=== PATIENT | male | born 1975 | race Caucasian/White ===

== ENCOUNTER 2017-11-23 03:51 | Inpatient (IN) | payer MEDICAID ==
[~2017-11-23] VITALS: Ht 180.3 cm; Wt 79.5 kg
[~2017-11-23 03:51] MED LIST: HYDR-565 PO; LORA1TAB PO; TRAZ-146 PO; ZOLP10TA5 PO
[2017-11-23] MEDS ORDERED: TETanus/Pertussis (Acell)/Diphther VAC/PF (Tdap-Adult) 0.5ml syringe IM ONE (04:10)
[2017-11-23] MEDS ORDERED: normal saline 1000ML IV soln IV ONE (04:10)
[2017-11-23] MEDS ORDERED: piperacillin/tazo 3.375gm/50ml 50 ML IV ONE (04:10)
[2017-11-23] MEDS ORDERED: vancomycin/NS 1 GM ADD-VANTAGE 250 ML IV ONE (04:10)
[2017-11-23] MEDS ORDERED: ibuprofen tablet 400 MG TABLET PO ONE (04:10)
[2017-11-23 04:42] LABS: BASOPHILS # (AUTO) 0.2 X10'3 (0-0.2); EOSINOPHILS # (AUTO) 0.1 X10'3 (0-0.9); EOSINOPHILS % (AUTO) 0.8 % (0-6); HEMOGLOBIN 12.7 g/dl (14.0-17.9); LYMPHOCYTES # (AUTO) 3.3 X10'3 (1.1-4.8); LYMPHOCYTES % (AUTO) 20.7 % (21-51); MEAN CORPUSCULAR HEMOGLOBIN 24.4 PG (27.0-31.0); MEAN CORPUSCULAR HGB CONC 33.5 % (33.0-36.5); MEAN CORPUSCULAR VOLUME 72.7 FL (78-98); MEAN PLATELET VOLUME 7.6 FL (7.4-10.4); MONOCYTES # (AUTO) 1.2 X10'3 (0-0.9); MONOCYTES % (AUTO) 7.2 % (2-12); NEUTROPHILS # (AUTO) 11.3 X10'3 (1.8-7.7); NEUTROPHILS % (AUTO) 70.3 % (42-75); PLATELET COUNT 450 X10'3 (140-440); RED BLOOD COUNT 5.23 X10'6 (4.70-6.10); RED CELL DISTRIBUTION WIDTH 18.7 % (11.5-14.5)
[2017-11-23] MEDS ORDERED: morphine 4 MG/ML inj SYRINge IV ONE ×3 (04:45→10:20)
[2017-11-23 04:51] LABS: CLARITY,URINE CLOUDY (Clear); COLOR,URINE YELLOW (Yellow); GLUCOSE, URINE NEGATIVE (Neg); KETONES,URINE NEGATIVE (Neg); LEUKOCYTE ESTERASE ,URINE LARGE (Neg); NITRITES, URINE POSITIVE (Neg); OCCULT BLOOD,URINE SMALL (Neg); PH,URINE 7.5 (4.8-8.0); PROTEIN,URINE 30 mg/dl (Neg); UROBILINOGEN,URINE >=8.0 E.U/dL (0.2-1.0)
[2017-11-23 04:54] LABS: UA COLLECTION TYPE FOLEY CATH
[2017-11-23 04:56] LABS: BACTERIA,URINE 4+ /HPF (Neg); WBC,URINE 30-50 /HPF (0-4)
[2017-11-23 04:57] LABS: ALANINE AMINOTRANSFERASE 12 U/L (12-78); ALBUMIN 2.5 G/DL (3.4-5.0); ALBUMIN/GLOBULIN RATIO 0.4 (1.1-1.5); ALKALINE PHOSPHATASE 107 IU/L (46-116); ANION GAP 8 (8-16); ASPARTATE AMINO TRANSFERASE 12 U/L (10-37); BILIRUBIN,TOTAL 0.3 MG/DL (0.1-1.0); BLOOD UREA NITROGEN 6 MG/DL (7-18); BUN/CREATININE RATIO 9.7 (5.4-32.0); CALCIUM 8.4 MG/DL (8.5-10.1); CHLORIDE 97 MMOL/L (99-107); CREATININE 0.62 MG/DL (0.60-1.10); GLUCOSE 121 MG/DL (70-104); MAGNESIUM 1.8 MG/DL (1.5-2.4); POTASSIUM 3.2 MMOL/L (3.5-5.1); SODIUM 133 MMOL/L (135-145); TOTAL CARBON DIOXIDE 28.1 MMOL/L (24-32); TOTAL PROTEIN 8.6 G/DL (6.4-8.2); eGFR > 90 ML/MIN
[2017-11-23 04:58] LABS: SQUAMOUS EPITHELIAL CELL,UR NONE SEEN /LPF (FEW)
[2017-11-23 04:59] LABS: AMORPHOUS PHOSPHATES 2+; WBC CLUMPS,URINE MODERATE /HPF (NEGATIVE)
[2017-11-23] MEDS ORDERED: potassium Cl 20 mEq SR tablet PO STA (05:23)
[2017-11-23] MEDS ORDERED: normal saline 1000ml 1,000 ML IV SCH (08:03)
[2017-11-23] MEDS ORDERED: potassium Cl 40MEQ/NS 500ml 500 ML IV PRN ×2 (08:05)
[2017-11-23] MEDS ORDERED: ondansetron/PF 4mg/2ml inj IV PRN (08:05)
[2017-11-23] MEDS ORDERED: magnesium Cl slow-release 64mg tablet PO PRN (08:05)
[2017-11-23] MEDS ORDERED: magnesium 1gm/100ml D5W IVPB 100 ML IV PRN (08:05)
[2017-11-23] MEDS ORDERED: magnesium hydroxide 30ml (MOM) UD suspension PO PRN (08:05)
[2017-11-23] MEDS ORDERED: mag hydrox/Alum hydrox/simeth 30ml oral suspension PO PRN (08:05)
[2017-11-23] MEDS ORDERED: HYDROmorphone 1 mg/ml syringe IV PRN (08:05)
[2017-11-23] MEDS ORDERED: magnesium 4gm in 100ml NS 100 ML IV PRN (08:05)
[2017-11-23] MEDS ORDERED: potassium Cl 20 mEq SR tablet PO PRN ×2 (08:05)
[2017-11-23] MEDS ORDERED: piperacillin/tazo 3.375gm/50ml 50 ML IV SCH ×2 (08:10→11:00)
[2017-11-23] MEDS ORDERED: morphine 4 MG/ML inj SYRINge ONE (10:04)
[2017-11-23] MEDS ORDERED: vancomycin/NS 1 GM ADD-VANTAGE 250 ML IV SCH (13:00)
[2017-11-23 13:33] VITALS: BP 118/78
[2017-11-23] MEDS ORDERED: lactobacillus rhamnosus 10,000 MMU CELLS/CAPSULE PO SCH (20:00)
[2017-11-24] MEDS ORDERED: VANCOMYCIN LEVEL IV NR (04:30)
[2017-11-24] MEDS ORDERED: K and/or MAG REPLACEMENT MC SCH (08:00)
== END 2017-11-23 15:10 | disposition left against medical advice (07) | DRG 720 ==
LOC: ER 03:52 → ED HOLD 08:03 → EDBEDREQ 13:09 → S STAY 13:45
PROVIDERS: ADMIT Internal Medicine; ATTEND Internal Medicine
DX: A41.9 Sepsis, unspecified organism (principal); G82.50 Quadriplegia, unspecified; L89.159 Pressure ulcer of sacral region, unspecified stage; F17.210 Nicotine dependence, cigarettes, uncomplicated; G47.30 Sleep apnea, unspecified; L03.114 Cellulitis of left upper limb; M70.32 Other bursitis of elbow, left elbow; N39.0 Urinary tract infection, site not specified; M86.9 Osteomyelitis, unspecified; N31.9 Neuromuscular dysfunction of bladder, unspecified; Z53.21 Procedure and treatment not carried out due to patient leaving prior to being seen by health care provider; Z88.8 Allergy status to other drugs, medicaments and biological substances
CPT/HCPCS: 36415; 71045; 73080; 80053; 81001; 83605; 83735; 84145; 85025; 87040; 87070; 87077; 87088; 87186; 90715; A6253; A6255; A6257; A6446; A6449; J2270; J2405; J2543; J3370; J7030

== ENCOUNTER 2018-08-23 01:19 | Inpatient (IN) | payer MEDICAID ==
[~2018-08-23] VITALS: Ht 180.3 cm; Wt 88.6 kg
[~2018-08-23 01:19] MED LIST changes: +HYDR-4353 PO; -HYDR-565 PO; -TRAZ-146 PO; +TRAZ-219 PO
[2018-08-23] MEDS ORDERED: acetaminophen 325mg tablet PO STA (01:23)
[2018-08-23] MEDS ORDERED: normal saline 1000ML IV soln IVB ONE ×2 (01:30)
[2018-08-23] MEDS ORDERED: LORazepam 2 mg/ml vial IV ONE (01:40)
[2018-08-23] MEDS ORDERED: dicyclomine 10mg/ml 2ml ampule IM ONE (01:40)
[2018-08-23] MEDS ORDERED: fentaNYL/PF 50MCG/1 ML 2ML syringe IV ONE (01:40)
[2018-08-23 02:14] LABS: BASOPHILS # (AUTO) 0.1 X10'3 (0-0.2); BASOPHILS % (AUTO) 0.9 % (0-1); EOSINOPHILS # (AUTO) 0.1 X10'3 (0-0.9); HEMATOCRIT 32.9 % (42.0-52.0); LYMPHOCYTES # (AUTO) 1.3 X10'3 (1.1-4.8); MEAN CORPUSCULAR HEMOGLOBIN 24.5 PG (27.0-31.0); MEAN CORPUSCULAR HGB CONC 33.3 g/dL (33.0-36.5); MEAN PLATELET VOLUME 6.8 FL (7.4-10.4); MONOCYTES # (AUTO) 0.9 X10'3 (0-0.9); RED BLOOD COUNT 4.48 X10'6 (4.70-6.10)
[2018-08-23 02:15] LABS: EOSINOPHILS % (AUTO) 0.6 % (0-6); LYMPHOCYTES % (AUTO) 9.3 % (21-51); MEAN CORPUSCULAR VOLUME 73.5 FL (78-98); MONOCYTES % (AUTO) 6.8 % (2-12); NEUTROPHILS # (AUTO) 11.2 X10'3 (1.8-7.7); NEUTROPHILS % (AUTO) 82.4 % (42-75); PLATELET COUNT 675 X10'3 (140-440); RED CELL DISTRIBUTION WIDTH 18.2 % (11.5-14.5); WHITE BLOOD COUNT 13.6 X10'3 (4.5-11.0)
[2018-08-23 02:22] LABS: CLARITY,URINE CLOUDY (Clear); COLOR,URINE YELLOW (Yellow); GLUCOSE, URINE NEGATIVE (Neg); KETONES,URINE TRACE mg/dl (Neg); LEUKOCYTE ESTERASE ,URINE LARGE (Neg); NITRITES, URINE POSITIVE (Neg); OCCULT BLOOD,URINE LARGE (Neg); PROTEIN,URINE 30 mg/dl (Neg)
[2018-08-23 02:26] LABS: ALANINE AMINOTRANSFERASE 20 U/L (12-78); ALBUMIN/GLOBULIN RATIO 0.3 (1.1-1.5); ALKALINE PHOSPHATASE 88 IU/L (46-116); ANION GAP 8 (8-16); ASPARTATE AMINO TRANSFERASE 16 U/L (10-37); BILIRUBIN,TOTAL 0.3 MG/DL (0.1-1.0); BLOOD UREA NITROGEN 9 MG/DL (7-18); BUN/CREATININE RATIO 15.3 (5.4-32.0); CALCIUM 8.7 MG/DL (8.5-10.1); CHLORIDE 101 MMOL/L (99-107); CREATININE 0.59 MG/DL (0.60-1.10); GLUCOSE 123 MG/DL (70-104); POTASSIUM 3.6 MMOL/L (3.5-5.1); SODIUM 135 MMOL/L (135-145); TOTAL CARBON DIOXIDE 26.5 MMOL/L (24-32); TOTAL PROTEIN 8.5 G/DL (6.4-8.2); eGFR > 90 ML/MIN
[2018-08-23 02:26] LABS: UA COLLECTION TYPE FOLEY CATH
[2018-08-23 02:28] LABS: INR 1.2 INR; PARTIAL THROMBOPLASTIN TIME 32 SECONDS (22-32)
[2018-08-23 02:29] LABS: SQUAMOUS EPITHELIAL CELL,UR FEW /LPF (FEW); WBC,URINE TNTC /HPF (0-4)
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
[2018-08-23 02:30] LABS: BACTERIA,URINE 4+ /HPF (Neg); MUCUS STRANDS MODERATE /LPF (Neg)
--- NOTE | 2018-08-23 02:34 | NUR ---
DR FORD SAW PTS DECUBES. PICS TAKEN
--- NOTE | 2018-08-23 02:34 | NUR ---
asked dr rose if he wanted wounds redressed. stated not to do it and to let wound care take care of it
[2018-08-23 02:38] LABS: URINE AMPHETAMINE SCREEN POSITIVE (Neg); URINE BARBITUATE SCREEN NEGATIVE (Neg); URINE BENZODIAZEPINES SCREEN NEGATIVE (Neg); URINE CANNABINOID SCREEN NEGATIVE (Neg); URINE COCAINE SCREEN NEGATIVE (Neg); URINE METHADONE SCREEN NEGATIVE (Neg); URINE OPIATE SCREEN NEGATIVE (Neg); URINE PHENCYCLIDINE SCREEN NEGATIVE (Neg)
[2018-08-23] MEDS ORDERED: piperacillin/tazo 3.375gm/50ml 50 ML IV SCH (02:40)
[2018-08-23] MEDS ORDERED: normal saline 1000ml 1,000 ML IV SCH (03:24)
[2018-08-23] MEDS ORDERED: morphine 2 MG/ML inj. syringe IV PRN (03:25)
[2018-08-23] MEDS ORDERED: magnesium hydroxide 30ml (MOM) UD suspension PO PRN (03:25)
[2018-08-23] MEDS ORDERED: acetaminophen 325mg tablet PO PRN (03:25)
[2018-08-23] MEDS ORDERED: NO HOME MEDS (03:26)
[2018-08-23] MEDS: morphine 2 MG/ML inj. syringe IV PRN ×5 (04:34→23:29)
[2018-08-23 05:00] VITALS: BP 168/119
[2018-08-23 06:00] VITALS: BP 96/60
--- NOTE | 2018-08-23 06:32 | NUR ---
Problems reprioritized. Patient report given, questions answered & plan of care reviewed with edwina Feliciano.
[2018-08-23] MEDS: heparin, porcine 5000 units/ml vial SQ SCH ×2 (07:05→19:27)
[2018-08-23] MEDS: mag hydrox/Alum hydrox/simeth 30ml oral suspension PO PRN ×3 (09:15→21:22)
[2018-08-23 10:00] VITALS: BP 167/108
[2018-08-23] MEDS: cefepime 1GM/NS ADD-VANTAGE 100 ML IV SCH ×2 (10:45→19:27)
[2018-08-23] MEDS: vancomycin inj 1,250 MG in NS 250ml IV soln IV SCH ×2 (12:38→19:29)
--- NOTE | 2018-08-23 14:29 | NUR ---
PRESSURE ULCER EDUCATION: DEFINITION: A pressure ulcer is an area of skin that breaks down when you stay in one position too long. The constant pressure against the skin reduces the blood flow to that area and the affected tissue dies. CAUSES: "Being bedridden or in a wheelchair "Fragile skin "Having a chronic condition, such as diabetes or vascular disease "Inability to move certain parts of your body without assistance "Older age "Incontinence of urine or stool SYMPTOMS: "A reddened area that DOES NOT turn white when pressed on - this can be the beginning of a pressure ulcer "A blister, deep sore or a crater - these can be advanced pressure ulcers FIRST AID: "Relieve the pressure on this area "Keep the area clean and dry "Call your primary doctor if you see any of the above symptoms "DO NOT massage the area "DO NOT use a donut shaped or ring shaped pillow- these actually interfere with the blood flow and cause complications PREVENTION: "Check for pressure ulcers everyday "Change position at least every two hours to relieve pressure "Use items that help relieve pressure- pillows, sheepskin, foam padding, and powders. "Keep skin clean and dry "Eat healthy well balanced meals "Exercise daily IF YOU SEE ANY OF THESE SYMPTOMS WHILE IN THE HOSPITAL - TELL YOUR NURSE IMMEDIATELY. IF YOU SEE ANY OF THESE SYMPTOMS WHILE AT HOME OR HAVE ANY QUESTIONS OR CONCERNS ABOUT PRESSURE ULCERS - CALL YOUR PRIMARY DOCTOR IMMEDIATELY. Addendum: 08/23/18 at 1526 by Linda Valdez RN Amended: Links added.
--- NOTE | 2018-08-23 15:12 | NUR ---
RECOMMEND: 1. Daily bathing with no rinse skin cleanser. 2. Cream/Lotion to be applied to skin after bathing. 3. Belkys care Q shift and prn soiling, followed by Barrier Cream prn redness. 4. Turn patient Q 1-2 hrs and reposition with pillows. Pad walt prominences 5. Float heels to offload pressure. 6. Advanta Bed 7. Daily dressing to left elbow: Apply Teneder Wet pad and then wrap with kerlix. Secure with tape. 8. Daily dressing to right ischial wound. Apply Tender wet pad and cover with gauze or hydrophylic foam and then secure with tape 9. Daily dressing to left ischial wound. Lightly fill wound including undermined areas with saline moistened kerlix and cover with an ABD pad. Secure with tape. Addendum: 08/23/18 at 1526 by Linda Valdez RN Amended: Links added.
[2018-08-23] MEDS: metoprolol tartrate 25mg tablet PO SCH ×2 (16:26→19:26)
[2018-08-23] MEDS: potassium cl 20mEq in 1/2 NS 1,000 ML IV SCH (16:27)
[2018-08-23] MEDS: HYDROcodone/acetaminophen 10/325mg tab PO PRN ×2 (16:43→21:22)
[2018-08-23] MEDS: ondansetron/PF 4mg/2ml inj IV PRN (17:02)
[2018-08-23] MEDS: LORazepam 0.5 MG tablet PO PRN (17:59)
[2018-08-23 18:00] VITALS: BP 136/76
--- NOTE | 2018-08-23 18:24 | NUR ---
Problems reprioritized. Patient report given, questions answered & plan of care reviewed with Carrie SULTANA.
[2018-08-23] MEDS: lactobacillus rhamnosus 10,000 MMU CELLS/CAPSULE PO SCH (19:27)
[2018-08-23] MEDS: docusate sod 250mg capsule PO SCH (21:22)
[2018-08-23 22:00] VITALS: BP 147/84
[2018-08-24 02:00] VITALS: BP 91/47
--- NOTE | 2018-08-24 03:00 | NUR ---
Attempted to draw labs from pt, unsuccessful. transcript clerk attempted as well. Let lab know they will need to draw this am.
[2018-08-24] MEDS ORDERED: VANCOMYCIN LEVEL IV ONE (03:30)
[2018-08-24] MEDS: cefepime 1GM/NS ADD-VANTAGE 100 ML IV SCH ×3 (03:40→20:02)
[2018-08-24] MEDS: vancomycin inj 1,250 MG in NS 250ml IV soln IV SCH ×3 (04:00→16:51)
[2018-08-24] MEDS: morphine 2 MG/ML inj. syringe IV PRN ×4 (04:37→20:05)
[2018-08-24] MEDS: potassium cl 20mEq in 1/2 NS 1,000 ML IV SCH (04:40)
[2018-08-24 06:00] VITALS: BP 124/73
--- NOTE | 2018-08-24 06:12 | NUR ---
received report from edwina sandhu
[2018-08-24 06:39] LABS: BASOPHILS # (AUTO) 0.1 X10'3 (0-0.2); BASOPHILS % (AUTO) 1.1 % (0-1); EOSINOPHILS # (AUTO) 0.3 X10'3 (0-0.9); EOSINOPHILS % (AUTO) 3.2 % (0-6); HEMATOCRIT 29.7 % (42.0-52.0); HEMOGLOBIN 9.8 g/dl (14.0-17.9); LYMPHOCYTES # (AUTO) 1.9 X10'3 (1.1-4.8); LYMPHOCYTES % (AUTO) 18.6 % (21-51); MEAN CORPUSCULAR HEMOGLOBIN 24.8 PG (27.0-31.0); MEAN CORPUSCULAR VOLUME 75.1 FL (78-98); MEAN PLATELET VOLUME 6.8 FL (7.4-10.4); MONOCYTES # (AUTO) 0.9 X10'3 (0-0.9); MONOCYTES % (AUTO) 8.6 % (2-12); NEUTROPHILS # (AUTO) 7.1 X10'3 (1.8-7.7); NEUTROPHILS % (AUTO) 68.5 % (42-75); PLATELET COUNT 501 X10'3 (140-440); RED BLOOD COUNT 3.95 X10'6 (4.70-6.10); RED CELL DISTRIBUTION WIDTH 17.5 % (11.5-14.5); WHITE BLOOD COUNT 10.4 X10'3 (4.5-11.0)
[2018-08-24 06:56] LABS: ALANINE AMINOTRANSFERASE 14 U/L (12-78); ALBUMIN 1.6 G/DL (3.4-5.0); ALBUMIN/GLOBULIN RATIO 0.3 (1.1-1.5); ALKALINE PHOSPHATASE 77 IU/L (46-116); ANION GAP 7 (8-16); ASPARTATE AMINO TRANSFERASE 14 U/L (10-37); BILIRUBIN,TOTAL 0.2 MG/DL (0.1-1.0); BLOOD UREA NITROGEN 8 MG/DL (7-18); BUN/CREATININE RATIO 12.9 (5.4-32.0); CALCIUM 8.8 MG/DL (8.5-10.1); CHLORIDE 104 MMOL/L (99-107); CREATININE 0.62 MG/DL (0.60-1.10); GLUCOSE 141 MG/DL (70-104); POTASSIUM 3.5 MMOL/L (3.5-5.1); SODIUM 137 MMOL/L (135-145); TOTAL CARBON DIOXIDE 26.4 MMOL/L (24-32); TOTAL PROTEIN 7.1 G/DL (6.4-8.2); VANCOMYCIN,TROUGH 17.1 UG/ML (6.0-14.0); eGFR > 90 ML/MIN
[2018-08-24] MEDS: HYDROcodone/acetaminophen 10/325mg tab PO PRN ×4 (07:02→21:45)
[2018-08-24] MEDS: metoprolol tartrate 25mg tablet PO SCH (07:02)
[2018-08-24] MEDS: lactobacillus rhamnosus 10,000 MMU CELLS/CAPSULE PO SCH ×2 (07:02→20:02)
[2018-08-24] MEDS: heparin, porcine 5000 units/ml vial SQ SCH ×2 (07:04→20:05)
[2018-08-24] MEDS: ondansetron/PF 4mg/2ml inj IV PRN (09:32)
[2018-08-24 10:00] VITALS: BP 103/62
--- NOTE | 2018-08-24 10:45 | NUR ---
spoke w/financial secretary from dr. delgadillo's office returning a call from the nurse yesterday to establish an appointment for this pt, financial secretary told me that pt needs to establish himself w/a pcp at [facility] in order for dr. delgadillo to see him and that its very important that pt does b/c he has kidney stones that need to be taken care of per financial secretary, relayed message to pt, continue to educate pt
[2018-08-24] MEDS: mag hydrox/Alum hydrox/simeth 30ml oral suspension PO PRN (12:28)
[2018-08-24] MEDS: LORazepam 0.5 MG tablet PO PRN ×2 (13:49→21:44)
[2018-08-24 18:00] VITALS: BP 145/103
--- NOTE | 2018-08-24 18:07 | NUR ---
GAVE REPORT TO RD CASTAÑEDA
[2018-08-24] MEDS: metoprolol tartrate 12.5mg (1/2 tablet) PO SCH (20:03)
[2018-08-24] MEDS: docusate sod 250mg capsule PO SCH (20:04)
[2018-08-24 23:00] VITALS: BP 141/94
[2018-08-25] MEDS: vancomycin inj 1,250 MG in NS 250ml IV soln IV SCH ×2 (01:00→09:00)
[2018-08-25] MEDS: morphine 2 MG/ML inj. syringe IV PRN ×5 (01:00→20:00)
[2018-08-25] MEDS: HYDROcodone/acetaminophen 10/325mg tab PO PRN ×4 (02:45→17:14)
[2018-08-25] MEDS: cefepime 1GM/NS ADD-VANTAGE 100 ML IV SCH ×3 (02:49→19:53)
[2018-08-25 06:00] VITALS: BP 104/68
[2018-08-25] MEDS: LORazepam 0.5 MG tablet PO PRN (06:05)
[2018-08-25] MEDS: lactobacillus rhamnosus 10,000 MMU CELLS/CAPSULE PO SCH ×2 (08:05→19:54)
[2018-08-25] MEDS: heparin, porcine 5000 units/ml vial SQ SCH ×2 (08:06→19:56)
[2018-08-25] MEDS: metoprolol tartrate 12.5mg (1/2 tablet) PO SCH ×2 (08:06→19:54)
[2018-08-25 08:21] LABS: BASOPHILS # (AUTO) 0.1 X10'3 (0-0.2); EOSINOPHILS # (AUTO) 0.3 X10'3 (0-0.9); EOSINOPHILS % (AUTO) 2.6 % (0-6); HEMATOCRIT 31.5 % (42.0-52.0); HEMOGLOBIN 10.4 g/dl (14.0-17.9); LYMPHOCYTES # (AUTO) 1.8 X10'3 (1.1-4.8); LYMPHOCYTES % (AUTO) 17.7 % (21-51); MEAN CORPUSCULAR HEMOGLOBIN 24.7 PG (27.0-31.0); MEAN PLATELET VOLUME 6.7 FL (7.4-10.4); MONOCYTES # (AUTO) 0.7 X10'3 (0-0.9); MONOCYTES % (AUTO) 6.5 % (2-12); NEUTROPHILS # (AUTO) 7.3 X10'3 (1.8-7.7); NEUTROPHILS % (AUTO) 72.2 % (42-75); PLATELET COUNT 574 X10'3 (140-440); RED BLOOD COUNT 4.21 X10'6 (4.70-6.10); RED CELL DISTRIBUTION WIDTH 17.6 % (11.5-14.5); WHITE BLOOD COUNT 10.1 X10'3 (4.5-11.0)
[2018-08-25] MEDS ORDERED: VANCOMYCIN LEVEL IV ONE (08:30)
[2018-08-25 08:56] LABS: ALBUMIN 1.7 G/DL (3.4-5.0); ALBUMIN/GLOBULIN RATIO 0.3 (1.1-1.5); ANION GAP 5 (8-16); BILIRUBIN,TOTAL 0.2 MG/DL (0.1-1.0); BLOOD UREA NITROGEN 8 MG/DL (7-18); BUN/CREATININE RATIO 12.7 (5.4-32.0); CALCIUM 8.5 MG/DL (8.5-10.1); CHLORIDE 103 MMOL/L (99-107); CREATININE 0.63 MG/DL (0.60-1.10); GLUCOSE 117 MG/DL (70-104); POTASSIUM 3.8 MMOL/L (3.5-5.1); SODIUM 137 MMOL/L (135-145); TOTAL CARBON DIOXIDE 28.6 MMOL/L (24-32); TOTAL PROTEIN 7.7 G/DL (6.4-8.2); eGFR > 90 ML/MIN
[2018-08-25 08:57] LABS: ALANINE AMINOTRANSFERASE 16 U/L (12-78); ALKALINE PHOSPHATASE 83 IU/L (46-116); ASPARTATE AMINO TRANSFERASE 14 U/L (10-37)
[2018-08-25] MEDS: LORazepam 2 mg/ml vial IV PRN ×2 (10:44→17:17)
[2018-08-25 11:00] VITALS: BP 168/93
[2018-08-25] MEDS: vancomycin/NS 1 GM ADD-VANTAGE 250 ML IV SCH ×2 (13:25→20:33)
[2018-08-25 18:00] VITALS: BP 110/89
--- NOTE | 2018-08-25 19:00 | NUR ---
Patient in room ORTHO 4006. I have received report from am RN and had the opportunity to ask questions and assume patient care.
[2018-08-25] MEDS: docusate sod 250mg capsule PO SCH (19:56)
[2018-08-25 22:00] VITALS: BP 113/73
[2018-08-26] MEDS: LORazepam 2 mg/ml vial IV PRN (00:29)
[2018-08-26] MEDS: morphine 2 MG/ML inj. syringe IV PRN ×3 (02:00→15:06)
[2018-08-26] MEDS: cefepime 1GM/NS ADD-VANTAGE 100 ML IV SCH ×2 (03:16→11:39)
[2018-08-26] MEDS: vancomycin/NS 1 GM ADD-VANTAGE 250 ML IV SCH ×2 (04:43→15:11)
[2018-08-26] MEDS: HYDROcodone/acetaminophen 10/325mg tab PO PRN ×3 (04:47→17:43)
[2018-08-26 05:56] LABS: BASOPHILS % (AUTO) 0.5 % (0-1); EOSINOPHILS # (AUTO) 0.2 X10'3 (0-0.9); EOSINOPHILS % (AUTO) 2.6 % (0-6); HEMOGLOBIN 9.6 g/dl (14.0-17.9); LYMPHOCYTES # (AUTO) 1.6 X10'3 (1.1-4.8); LYMPHOCYTES % (AUTO) 18.9 % (21-51); MEAN CORPUSCULAR HEMOGLOBIN 24.4 PG (27.0-31.0); MEAN CORPUSCULAR HGB CONC 32.9 g/dL (33.0-36.5); MEAN CORPUSCULAR VOLUME 74.3 FL (78-98); MEAN PLATELET VOLUME 6.8 FL (7.4-10.4); MONOCYTES # (AUTO) 0.7 X10'3 (0-0.9); MONOCYTES % (AUTO) 7.7 % (2-12); NEUTROPHILS # (AUTO) 6.1 X10'3 (1.8-7.7); NEUTROPHILS % (AUTO) 70.3 % (42-75); PLATELET COUNT 555 X10'3 (140-440); RED BLOOD COUNT 3.91 X10'6 (4.70-6.10); RED CELL DISTRIBUTION WIDTH 17.7 % (11.5-14.5); WHITE BLOOD COUNT 8.7 X10'3 (4.5-11.0)
[2018-08-26 06:00] VITALS: BP 150/80
--- NOTE | 2018-08-26 06:00 | NUR ---
Patient in room ORTHO 4006. I have received report from Young SULTANA and had the opportunity to ask questions and assume patient care.
[2018-08-26 06:23] LABS: ALANINE AMINOTRANSFERASE 12 U/L (12-78); ALBUMIN 1.5 G/DL (3.4-5.0); ALBUMIN/GLOBULIN RATIO 0.3 (1.1-1.5); ALKALINE PHOSPHATASE 85 IU/L (46-116); ANION GAP 8 (8-16); ASPARTATE AMINO TRANSFERASE 14 U/L (10-37); BILIRUBIN,TOTAL 0.2 MG/DL (0.1-1.0); BLOOD UREA NITROGEN 7 MG/DL (7-18); BUN/CREATININE RATIO 12.5 (5.4-32.0); CALCIUM 8.5 MG/DL (8.5-10.1); CHLORIDE 104 MMOL/L (99-107); CREATININE 0.56 MG/DL (0.60-1.10); GLUCOSE 104 MG/DL (70-104); POTASSIUM 3.7 MMOL/L (3.5-5.1); SODIUM 139 MMOL/L (135-145); TOTAL CARBON DIOXIDE 27.4 MMOL/L (24-32); TOTAL PROTEIN 7.2 G/DL (6.4-8.2); eGFR > 90 ML/MIN
[2018-08-26] MEDS: heparin, porcine 5000 units/ml vial SQ SCH (08:24)
[2018-08-26] MEDS: lactobacillus rhamnosus 10,000 MMU CELLS/CAPSULE PO SCH (08:24)
[2018-08-26] MEDS: metoprolol tartrate 12.5mg (1/2 tablet) PO SCH (08:25)
[2018-08-26 10:00] VITALS: BP 177/112
[2018-08-26] MEDS ORDERED: VANCOMYCIN LEVEL IV NR (11:30)
[2018-08-26] MEDS ORDERED: CLIN60LO2 TP (14:37)
[2018-08-26] MEDS ORDERED: SULF1TAB49 PO (14:37)
[2018-08-26] MEDS ORDERED: HYDR-4383 PO (14:38)
--- NOTE | 2018-08-26 15:14 | NUR ---
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 Pt seen at bedside given written and verbal protein education with coupons for ONS and Christian as well as RD contact information. Pt agreeable to double protein TID and chocolate high protein shake BIDLD to provide additional protein at meals, d/w . RD encouraged PO intake in order to meet wound healing needs. RD paged MD with recommendation of MVM for wound healing and low MCV. Pt on a regular diet with previous 50% intake however documented with 75-100% intake at breakfast this morning. Pt endorses a good appetite and states he is hungry/thirsty. Pt states he is allergic to fish/shellfish and will break into hives if eaten, allergy updated in EMR. Pt denies any difficulty chewing/swallowing. LBM 08/23, pt with routine Colace and MoM PRN not yet given. Will continue to follow. Recommendations: 1) Continue regular diet 2) Double protein TID 3) Chocolate high protein shake BIDLD 4) Encourage PO intake 5) Monitor need for additional bowel care 6) Wt per rx Addendum: 08/26/18 at [address] Amended: Links added.
[2018-08-26] MEDS ORDERED: High Protein Shake w/Arg/Glut/Ca2+Bmb (Juven 19.3gm) pkt 240ml PO SCH (17:30)
[2018-08-26] MEDS: LORazepam 0.5 MG tablet PO PRN (17:43)
--- NOTE | 2018-08-26 19:08 | NUR ---
Patient discharged home with . All belongings sent with patient. DC instructions given and IV taken out
[2018-08-26] MEDS ORDERED: clindamycin 1% topical susp 60ml bottle TP SCH (20:00)
== END 2018-08-26 18:20 | disposition home health service (06) | DRG 466 ==
LOC: ER 01:20 → ORTHO 4S 04:24 → CMPBEDREQ 04:36
PROVIDERS: ADMIT Internal Medicine; ATTEND Internal Medicine
PROC: 5A09357 Assistance with Respiratory Ventilation, Less than 24 Consecutive Hours, Continuous Positive Airway Pressure (ICD-10-PCS; principal; 2018-08-23)
PROC: 5A09357 Assistance with Respiratory Ventilation, Less than 24 Consecutive Hours, Continuous Positive Airway Pressure (ICD-10-PCS; 2018-08-26)
DX: T83.511A Infection and inflammatory reaction due to indwelling urethral catheter, initial encounter (principal); A41.9 Sepsis, unspecified organism; G82.50 Quadriplegia, unspecified; L89.214 Pressure ulcer of right hip, stage 4; L89.224 Pressure ulcer of left hip, stage 4; F15.90 Other stimulant use, unspecified, uncomplicated; F17.200 Nicotine dependence, unspecified, uncomplicated; G47.30 Sleep apnea, unspecified; N21.0 Calculus in bladder; N31.9 Neuromuscular dysfunction of bladder, unspecified; N39.0 Urinary tract infection, site not specified; G89.4 Chronic pain syndrome; Y84.6 Urinary catheterization as the cause of abnormal reaction of the patient, or of later complication, without mention of misadventure at the time of the procedure; I10 Essential (primary) hypertension; L89.029 Pressure ulcer of left elbow, unspecified stage; Z88.8 Allergy status to other drugs, medicaments and biological substances; Z91.013 Allergy to seafood; Z79.899 Other long term (current) drug therapy; Y92.89 Other specified places as the place of occurrence of the external cause; Z74.01 Bed confinement status
CPT/HCPCS: 36415; 71045; 71250; 74176; 80053; 80202; 80305; 81001; 83605; 84145; 85025; 85610; 85730; 87040; 87070; 87077; 87088; 87186; 93005; 96365; 96367; 96372; 96375; 99285; G0378; J0500; J0692; J1644; J2060; J2270; J2405; J2543; J3010; J3370; J7030

== ENCOUNTER 2018-09-14 09:34 | Inpatient (IN) | payer MEDICAID ==
[~2018-09-14] VITALS: Ht 180.3 cm; Wt 81.8 kg
[~2018-09-14 09:34] MED LIST changes: +CLIN60LO2 TP; -HYDR-4353 PO; +HYDR-4383 PO; -LORA1TAB PO; +SULF1TAB49 PO; -TRAZ-219 PO; -ZOLP10TA5 PO
--- NOTE | 2018-09-14 09:45 | NUR ---
STATES HAS NEVER BEEN ALLERGIC TO FISH OR SHELLFIST ALTHOUGH DOES NOT EAT FISH
[2018-09-14] MEDS ORDERED: acetaminophen 325mg tablet PO STA (10:08)
[2018-09-14] MEDS ORDERED: normal saline 1000ML IV soln IV ONE (10:10)
[2018-09-14] MEDS ORDERED: CefTRIAXone 2gm/D5W 50ml 50 ML IV ONE (10:30)
--- NOTE | 2018-09-14 10:50 | NUR ---
picc line nurse iva at bedside
[2018-09-14] MEDS ORDERED: morphine 4 MG/ML inj SYRINge IV ONE (11:05)
[2018-09-14] MEDS ORDERED: ondansetron/PF 4mg/2ml inj IV ONE (11:05)
[2018-09-14 11:13] LABS: BASOPHILS # (AUTO) 0.1 X10'3 (0-0.2); BASOPHILS % (AUTO) 0.8 % (0-1); EOSINOPHILS # (AUTO) 0.1 X10'3 (0-0.9); EOSINOPHILS % (AUTO) 0.4 % (0-6); HEMATOCRIT 29.4 % (42.0-52.0); HEMOGLOBIN 9.4 g/dl (14.0-17.9); LYMPHOCYTES # (AUTO) 2.8 X10'3 (1.1-4.8); LYMPHOCYTES % (AUTO) 20.8 % (21-51); MEAN CORPUSCULAR HEMOGLOBIN 23.3 PG (27.0-31.0); MEAN CORPUSCULAR HGB CONC 31.9 g/dL (33.0-36.5); MEAN PLATELET VOLUME 6.9 FL (7.4-10.4); MONOCYTES # (AUTO) 1.3 X10'3 (0-0.9); MONOCYTES % (AUTO) 9.5 % (2-12); NEUTROPHILS # (AUTO) 9.2 X10'3 (1.8-7.7); NEUTROPHILS % (AUTO) 68.5 % (42-75); PLATELET COUNT 551 X10'3 (140-440); RED BLOOD COUNT 4.02 X10'6 (4.70-6.10); RED CELL DISTRIBUTION WIDTH 17.3 % (11.5-14.5); WHITE BLOOD COUNT 13.5 X10'3 (4.5-11.0)
[2018-09-14 11:20] LABS: INR 1.2 INR; PARTIAL THROMBOPLASTIN TIME 34 SECONDS (22-32)
[2018-09-14 11:23] LABS: ALANINE AMINOTRANSFERASE 19 U/L (12-78); ALBUMIN 1.8 G/DL (3.4-5.0); ALBUMIN/GLOBULIN RATIO 0.3 (1.1-1.5); ALKALINE PHOSPHATASE 110 IU/L (46-116); ANION GAP 6 (8-16); ASPARTATE AMINO TRANSFERASE 16 U/L (10-37); BILIRUBIN,TOTAL 0.4 MG/DL (0.1-1.0); BLOOD UREA NITROGEN 11 MG/DL (7-18); BUN/CREATININE RATIO 19.6 (5.4-32.0); CALCIUM 8.8 MG/DL (8.5-10.1); CHLORIDE 98 MMOL/L (99-107); CREATININE 0.56 MG/DL (0.60-1.10); GLUCOSE 123 MG/DL (70-104); MAGNESIUM 1.5 MG/DL (1.5-2.4); POTASSIUM 3.4 MMOL/L (3.5-5.1); SODIUM 132 MMOL/L (135-145); TOTAL CARBON DIOXIDE 27.8 MMOL/L (24-32); TOTAL PROTEIN 8.6 G/DL (6.4-8.2); eGFR > 90 ML/MIN
--- NOTE | 2018-09-14 12:01 | NUR ---
MULTIPLE PROCEDURES PERFORMED, PT MEDICATED WITH 4 OF ZOFRAN AND MORPHINE PRIOR TO PROCEDURES, CATHETER CHANGE, BILATER HIP WOUND CARE PERFORMED AND BLOOD DRAWN FOR SECOND SET OF CULTURES, URINE OBTAINED FOR U/A/CULTURE. PT TOLERATED WELL
[2018-09-14 12:14] LABS: CLARITY,URINE CLOUDY (Clear); COLOR,URINE YELLOW (Yellow); GLUCOSE, URINE NEGATIVE (Neg); KETONES,URINE NEGATIVE (Neg); LEUKOCYTE ESTERASE ,URINE LARGE (Neg); NITRITES, URINE POSITIVE (Neg); OCCULT BLOOD,URINE LARGE (Neg); PROTEIN,URINE 100 mg/dl (Neg)
[2018-09-14] MEDS ORDERED: LORazepam 2 mg/ml vial IV ONE (12:20)
[2018-09-14 12:22] LABS: UA COLLECTION TYPE STRAIGHT CATH
[2018-09-14 12:23] LABS: WBC,URINE TNTC /HPF (0-4)
[2018-09-14 12:24] LABS: BACTERIA,URINE 2+ /HPF (Neg)
[2018-09-14 12:25] LABS: SQUAMOUS EPITHELIAL CELL,UR MODERATE /LPF (FEW); TRANSITIONAL EPI CELLS,URINE MANY /HPF
[2018-09-14] MEDS ORDERED: NO HOME MEDS (12:48)
[2018-09-14] MEDS ORDERED: magnesium Cl slow-release 64mg tablet PO PRN (12:55)
[2018-09-14] MEDS ORDERED: HYDROcodone/acetaminophen 5mg/325mg tablet PO PRN (12:55)
[2018-09-14] MEDS ORDERED: acetaminophen 325mg tablet PO PRN ×2 (12:55)
[2018-09-14] MEDS ORDERED: mag hydrox/Alum hydrox/simeth 30ml oral suspension PO PRN (12:55)
[2018-09-14] MEDS ORDERED: magnesium 2GM in 50ml NS 50 ML IV PRN (12:55)
[2018-09-14] MEDS ORDERED: magnesium 4gm in 100ml NS 100 ML IV PRN (12:55)
[2018-09-14] MEDS ORDERED: potassium Cl 40MEQ/NS 500ml 500 ML IV PRN ×2 (12:55)
[2018-09-14] MEDS ORDERED: magnesium hydroxide 30ml (MOM) UD suspension PO PRN (12:55)
[2018-09-14] MEDS ORDERED: ondansetron/PF 4mg/2ml inj IV PRN (12:55)
[2018-09-14] MEDS ORDERED: levoFLOXACIN-Levaquin 500mg/D5 100 ML IV ONE (12:55)
[2018-09-14] MEDS ORDERED: potassium Cl 20 mEq SR tablet PO PRN (12:55)
[2018-09-14] MEDS: potassium Cl 20 mEq SR tablet PO PRN ×2 (13:42→20:27)
[2018-09-14] MEDS: HYDROcodone/acetaminophen 10/325mg tab PO PRN ×2 (13:42→21:02)
[2018-09-14] MEDS: normal saline 1000ml 1,000 ML IV SCH (14:13)
[2018-09-14 14:55] VITALS: BP 143/79
--- NOTE | 2018-09-14 15:19 | NUR ---
Patient in room WHIT 353. I have received report from ALEXYS ABDUL RN and had the opportunity to ask questions and assume patient care.PATIENT arrived from ER. in stable condition seen by Dr Mendoza. Grandmother present . Has shared in caregiving patient for neally 30yrs. patient orientated to room.
[2018-09-14] MEDS: HYDROmorphone inj. 0.5 MG/0.5 ML DISP.SYRIN IV PRN ×2 (16:52→23:43)
--- NOTE | 2018-09-14 18:39 | NUR ---
patient in alot of pain Dr Víctor davis. ordered Dilaudid. Administered per EMAR. Patient was ordered an MRI Screening form faxed to MRI, and results approved by rail technician see screening form. But rescheduled due to patients agitation. Rescheduled for am. Patient unable to eat due to very reddened sore mouth. Dr víctor davis about oral thrush medication. wounds changed. Report given to Mariaa SULTANA
--- NOTE | 2018-09-14 18:40 | NUR ---
received report from RD Lou; pt in bed with bed linens coving his head; has lots of blankets on him
[2018-09-14] MEDS ORDERED: LORazepam 2 mg/ml vial IV PRN (19:10)
--- NOTE | 2018-09-14 19:30 | NUR ---
pt c/o of pain when awaken, but shorts returns to sleep; refuses tele & complete VS's at this time Addendum: 09/15/18 at 0327 by Any Jolly RN Amended: Links added.
[2018-09-14] MEDS ORDERED: heparin, porcine 5000 units/ml vial SQ SCH (20:00)
[2018-09-14] MEDS: nystatin 500,000 unit/5ML UD oral suspension PO SCH (20:27)
[2018-09-14] MEDS ORDERED: temazepam 15mg capsule PO PRN (21:00)
--- NOTE | 2018-09-14 21:00 | NUR ---
pt requesting dilaudid for pain; informed or MD's orders; becoming increasingly agitated; states that ativan 1mg IV has been helpful in the past (med given at 2101); pt states that he wants dilaudid, tigistco has been helpful in the past & agrees to take it now
--- NOTE | 2018-09-14 22:00 | NUR ---
report given to RD Mosley; informed of need for routine hospital admission questions to be completed
--- NOTE | 2018-09-14 22:00 | NUR ---
Received report from Mariaa RN due to staffing changes, patient resting eyes closed respirations even with CPAP on. Will continue to monitor.
[2018-09-15] VITALS: BP 126/66
[2018-09-15] MEDS ORDERED: metoprolol tartrate 12.5mg (1/2 tablet) PO ONE (00:05)
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
[2018-09-15] MEDS: normal saline 1000ml 1,000 ML IV SCH (00:31)
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
--- NOTE | 2018-09-15 02:19 | NUR ---
Received order to increase patient's ativan to Q4 hours PRN IV to assist him with his spasms and anxiety. Will continue to monitor.
[2018-09-15] MEDS: LORazepam 2 mg/ml vial IV PRN ×2 (02:58→07:14)
[2018-09-15 03:27] LABS: BASOPHILS # (AUTO) 0.1 X10'3 (0-0.2); BASOPHILS % (AUTO) 0.9 % (0-1); EOSINOPHILS % (AUTO) 0.3 % (0-6); HEMATOCRIT 25.1 % (42.0-52.0); LYMPHOCYTES # (AUTO) 2.4 X10'3 (1.1-4.8); LYMPHOCYTES % (AUTO) 19.2 % (21-51); MEAN CORPUSCULAR HEMOGLOBIN 23.1 PG (27.0-31.0); MEAN CORPUSCULAR VOLUME 72.1 FL (78-98); MEAN PLATELET VOLUME 6.9 FL (7.4-10.4); MONOCYTES # (AUTO) 1.6 X10'3 (0-0.9); MONOCYTES % (AUTO) 12.5 % (2-12); NEUTROPHILS # (AUTO) 8.4 X10'3 (1.8-7.7); NEUTROPHILS % (AUTO) 67.1 % (42-75); PLATELET COUNT 485 X10'3 (140-440); RED BLOOD COUNT 3.47 X10'6 (4.70-6.10); RED CELL DISTRIBUTION WIDTH 17.6 % (11.5-14.5); WHITE BLOOD COUNT 12.5 X10'3 (4.5-11.0)
[2018-09-15 03:34] LABS: ALBUMIN 1.5 G/DL (3.4-5.0); ANION GAP 6 (8-16); BLOOD UREA NITROGEN 8 MG/DL (7-18); BUN/CREATININE RATIO 14.3 (5.4-32.0); CALCIUM 8.5 MG/DL (8.5-10.1); CHLORIDE 99 MMOL/L (99-107); CREATININE 0.56 MG/DL (0.60-1.10); GLUCOSE 143 MG/DL (70-104); MAGNESIUM 1.4 MG/DL (1.5-2.4); SODIUM 132 MMOL/L (135-145); TOTAL CARBON DIOXIDE 26.9 MMOL/L (24-32); eGFR > 90 ML/MIN
--- NOTE | 2018-09-15 06:55 | NUR ---
Problems reprioritized. Patient report given, questions answered & plan of care reviewed with Dasha SULTANA. Family at bedside, plan of care discussed.
[2018-09-15 07:00] VITALS: BP 135/75
[2018-09-15] MEDS: HYDROcodone/acetaminophen 10/325mg tab PO PRN (07:15)
[2018-09-15] MEDS: nystatin 500,000 unit/5ML UD oral suspension PO SCH (07:17)
[2018-09-15] MEDS ORDERED: levoFLOXACIN-Levaquin 500mg/D5 100 ML IV SCH (08:00)
[2018-09-15] MEDS ORDERED: K and/or MAG REPLACEMENT MC SCH (08:00)
[2018-09-15] MEDS ORDERED: CefTRIAXone/D5W-Rocephin 1gm 50 ML IV SCH (08:00)
--- NOTE | 2018-09-15 09:59 | NUR ---
patient became agitated and was trying to call and daughters. He was unable to reach anyone, very anxious, stated he doesnt like being left alone. Patient had been assigned a sitter so was not alone. This staff administered Ativan to patient with minimal effect. patient progressively became more and more vocal cussing at staff and demanding to leave. Patients caregiver arrived. patient continued to insist that he would leave. Caregiver started dressing patient despite staff explaining dangers of patient leaving as he was. PICC line removed per patients request, floor care specialist dressed patient and patient left AMA Dr Gamez had been paged and spoken with. Patient left before Dr Gamez could see patient. 0930hrs home via private car with careworker.
[2018-09-16] MEDS ORDERED: HYDR-3965 PO (23:23)
[2018-09-16] MEDS ORDERED: LEVO500T2 PO (23:23)
[2018-09-16] MEDS ORDERED: CEPH500C5 PO (23:23)
== END 2018-09-15 09:32 | disposition left against medical advice (07) | DRG 463 ==
LOC: ER 09:35 → SUR 3N 14:44 → CMPBEDREQ 20:00
PROVIDERS: ADMIT Family Medicine; ATTEND Family Medicine
DX: N39.0 Urinary tract infection, site not specified (principal); E43 Unspecified severe protein-calorie malnutrition; L89.159 Pressure ulcer of sacral region, unspecified stage; L89.319 Pressure ulcer of right buttock, unspecified stage; L89.329 Pressure ulcer of left buttock, unspecified stage; E87.1 Hypo-osmolality and hyponatremia; D50.9 Iron deficiency anemia, unspecified; E87.6 Hypokalemia; F17.210 Nicotine dependence, cigarettes, uncomplicated; G47.30 Sleep apnea, unspecified; G89.29 Other chronic pain; M54.9 Dorsalgia, unspecified; R00.0 Tachycardia, unspecified; Z53.21 Procedure and treatment not carried out due to patient leaving prior to being seen by health care provider; Z68.25 Body mass index [BMI] 25.0-25.9, adult; Z88.8 Allergy status to other drugs, medicaments and biological substances; Z91.013 Allergy to seafood
CPT/HCPCS: 36415; 71045; 74176; 80048; 80053; 81001; 83605; 83735; 84145; 84439; 84443; 85025; 85610; 85730; 87040; 87070; 87077; 87088; 87186; 93005; 96365; 96375; 99285; G0378; J0696; J1170; J1644; J1956; J2060; J2270; J2405; J7030

== ENCOUNTER 2018-09-22 09:40 | Day surgery (SDC) | payer MEDICAID ==
[~2018-09-22 09:40] MED LIST changes: +CEPH500C5 PO; -CLIN60LO2 TP; +HYDR-3965 PO; -HYDR-4383 PO; +LEVO500T2 PO; +NO HOME MEDS; -SULF1TAB49 PO
--- NOTE | 2018-09-22 12:30 | NUR ---
Patient arrived via wheelchair accompanied by and son from [facility] and was admitted to outpatient wound care for physician visit with Angus Stevenson MD. [facility] family members. Dressing removed, wound cleansed and lidocaine applied per order. New patient assessment completed with review of patient's medical history and current medications. RN asked patient's (patient is sleeping through most of intake and assessment) if there were any wounds on feet or any where else on patient and stated she no wounds to feet and did not want the shoes removed or the feet assessed on this visit. Off loading discussed with patient's and son. 1045 - Dr. Stevenson at bedside accompanied by RN. Wound assessed, time out performed by MD/RN. Wound debrided as detailed in the physician progress/procedure note. Plan of care discussed with patient. Dressings placed per MD orders. Pt instructed that they should not be disconnected from suction for more than 2 hours at a time. If they are not able to get the suction back on they need to remove the dressing and take all of the foam out of the wound, place hydrogel gauze on/in the wound, and change the dressing daily until someone can replace the dressing. Pt instructed to call the Wound Center or their Home Health Agency immediately if they notice a change in the color or amount of the fluid in the canister, their wound looks more red than usual or has a foul smell, the skin around their wound looks reddened or irritated, the dressing feels or appears loose, they experience pain or the alarm will not turn off. Pt instructed to call 911 or go to the ED if their canister fills rapidly with blood. Patient's states they have had a wound vac in the past and she is familiar with vac operation and trouble shooting. Patient instructed on the signs and symptoms of infection and to call the Wound Center if any occur or to go to the ED if we are closed: Increased pain in wound Increase in drainage from the wound Redness in the skin surrounding the wound Bleeding from the wound Temperature of 101 or greater Patient instructed that the weight of their body puts a large amount of pressure on their wounds. This pressure keeps the new tissue from growing and inhibits new blood vessels from forming. Explained that, if they continue to bear weight on a body part that has a wound, the time it takes to heal the wound increases, the wound may get worse or the wound may not heal at all. Patient and family verbalized understanding of all discharge instructions and plan of care and patient is taken via wheelchair by family out to lobby in stable condition with no sign or symptom of distress at time of discharge. Report called to Josh SULTANA at [facility], orders faxed.
== END 2018-09-22 13:05 | disposition home or self-care (01) ==
LOC: WOUND CARE 09:40
PROVIDERS: ATTEND Surgery
DX: L89.314 Pressure ulcer of right buttock, stage 4 (principal); L89.324 Pressure ulcer of left buttock, stage 4; L89.024 Pressure ulcer of left elbow, stage 4; L89.154 Pressure ulcer of sacral region, stage 4; G47.30 Sleep apnea, unspecified; E43 Unspecified severe protein-calorie malnutrition; G89.4 Chronic pain syndrome; I10 Essential (primary) hypertension; G82.50 Quadriplegia, unspecified; F17.210 Nicotine dependence, cigarettes, uncomplicated; F15.90 Other stimulant use, unspecified, uncomplicated; Z79.899 Other long term (current) drug therapy; Z68.25 Body mass index [BMI] 25.0-25.9, adult
CPT/HCPCS: 11042; 36416; 97597; 97605; A6266; A6021; A6206; A6212; A6243

== ENCOUNTER 2018-10-06 11:50 | Outpatient (CLI) | payer MEDICAID ==
[~2018-10-06 11:50] MED LIST changes: -NO HOME MEDS
--- NOTE | 2018-10-06 16:09 | NUR ---
Patient arrived safely into [facility] via wheelchair accompanied by family. Patient admitted to outpatient wound care for physician visit with Angus Stevenson MD. Dressings removed and wounds cleansed. Patient assessed for changes in conditions, medications and medical history. Dr. Stevenson at bedside accompanied by RN. Wound assessed and no debridement was done. Patient placed on a wound vac holiday. Plan of care discussed with patient. Dressings placed per MD orders. Patient instructed on the signs and symptoms of infection and to call the Wound Center if any occur or to go to the ED if we are closed: Increased pain in wound Increase in drainage from the wound Redness in the skin surrounding the wound Bleeding from the wound Temperature of 101 or greater Patient instructed that the weight of their body puts a large amount of pressure on their wounds. This pressure keeps the new tissue from growing and inhibits new blood vessels from forming. Explained that, if they continue to bear weight on a body part that has a wound, the time it takes to heal the wound increases, the wound may get worse or the wound may not heal at all. Patient verbalized understanding of all discharge instructions and plan of care. Patient left in stable condition with no sign or symptom of distress at time of discharge. Addendum: 10/06/18 at 1614 by Elizabet Hinton RN Amended: Links added.
== END 2018-10-06 13:30 | disposition home or self-care (01) ==
LOC: WOUND CARE 11:50
PROVIDERS: ATTEND Surgery
DX: L89.314 Pressure ulcer of right buttock, stage 4 (principal); L89.324 Pressure ulcer of left buttock, stage 4; L89.024 Pressure ulcer of left elbow, stage 4; L89.154 Pressure ulcer of sacral region, stage 4; G47.30 Sleep apnea, unspecified; E43 Unspecified severe protein-calorie malnutrition; G89.4 Chronic pain syndrome; I10 Essential (primary) hypertension; G82.50 Quadriplegia, unspecified; F17.210 Nicotine dependence, cigarettes, uncomplicated; F15.90 Other stimulant use, unspecified, uncomplicated; Z79.899 Other long term (current) drug therapy; Z68.25 Body mass index [BMI] 25.0-25.9, adult
CPT/HCPCS: A6266; G0463; A6212; A6243; A6446

== ENCOUNTER 2018-11-10 17:06 | Emergency (ER) | payer MEDICAID ==
[~2018-11-10] VITALS: Ht 180.3 cm; Wt 86.4 kg
[2018-11-10 17:23] VITALS: BP 144/90
[2018-11-10] MEDS ORDERED: methylPREDNISolone sod succ 125mg/2ml vial IV ONE (17:30)
[2018-11-10] MEDS ORDERED: ipratropium/albuterol 3ml nebule NEB ONE (17:30)
[2018-11-10] MEDS ORDERED: normal saline 1000ML IV soln IV ONE (17:30)
[2018-11-10 18:18] LABS: ALANINE AMINOTRANSFERASE 11 U/L (12-78); ALBUMIN 1.8 G/DL (3.4-5.0); ALBUMIN/GLOBULIN RATIO 0.3 (1.1-1.5); ALKALINE PHOSPHATASE 113 IU/L (46-116); ANION GAP 10 (8-16); ASPARTATE AMINO TRANSFERASE 12 U/L (10-37); BILIRUBIN,TOTAL 0.2 MG/DL (0.1-1.0); BLOOD UREA NITROGEN 12 MG/DL (7-18); BUN/CREATININE RATIO 19.7 (5.4-32.0); CALCIUM 8.4 MG/DL (8.5-10.1); CHLORIDE 97 MMOL/L (99-107); CREATININE 0.61 MG/DL (0.60-1.10); GLUCOSE 143 MG/DL (70-104); SODIUM 132 MMOL/L (135-145); TOTAL CARBON DIOXIDE 24.8 MMOL/L (24-32); eGFR > 90 ML/MIN
[2018-11-10 18:19] LABS: BASOPHILS # (AUTO) 0.1 X10'3 (0-0.2); EOSINOPHILS # (AUTO) 0.1 X10'3 (0-0.9); EOSINOPHILS % (AUTO) 0.8 % (0-6); MONOCYTES # (AUTO) 1.4 X10'3 (0-0.9)
[2018-11-10 18:20] LABS: BASOPHILS % (AUTO) 0.4 % (0-1); HEMATOCRIT 32.6 % (42.0-52.0); HEMOGLOBIN 10.3 g/dl (14.0-17.9); MEAN CORPUSCULAR HEMOGLOBIN 22.4 PG (27.0-31.0); MEAN CORPUSCULAR HGB CONC 31.4 g/dL (33.0-36.5); MEAN CORPUSCULAR VOLUME 71.4 FL (78-98); MONOCYTES % (AUTO) 8.5 % (2-12); NEUTROPHILS # (AUTO) 11.9 X10'3 (1.8-7.7); NEUTROPHILS % (AUTO) 72.3 % (42-75); PLATELET COUNT 616 X10'3 (140-440); RED BLOOD COUNT 4.57 X10'6 (4.70-6.10); RED CELL DISTRIBUTION WIDTH 19.5 % (11.5-14.5); WHITE BLOOD COUNT 16.4 X10'3 (4.5-11.0)
--- NOTE | 2018-11-10 18:25 | NUR ---
Unable to obtain IV access after 2 failed attempts. Pt refusing any additional attempts. Provider and oracle database manager made aware.
[2018-11-10] MEDS ORDERED: potassium Cl 20 mEq SR tablet PO STA (18:27)
[2018-11-10 18:33] LABS: CLARITY,URINE TURBID (Clear); COLOR,URINE YELLOW (Yellow); GLUCOSE, URINE NEGATIVE (Neg); KETONES,URINE NEGATIVE (Neg); LEUKOCYTE ESTERASE ,URINE LARGE (Neg); NITRITES, URINE POSITIVE (Neg); OCCULT BLOOD,URINE SMALL (Neg); PROTEIN,URINE 30 mg/dl (Neg)
[2018-11-10 18:35] LABS: UA COLLECTION TYPE STRAIGHT CATH
[2018-11-10 18:40] LABS: MUCUS STRANDS FEW /LPF (Neg); SQUAMOUS EPITHELIAL CELL,UR FEW /LPF (FEW); WBC,URINE TNTC /HPF (0-4)
[2018-11-10] MEDS ORDERED: levoFLOXACIN 250mg tablet PO ONE (18:40)
[2018-11-10 18:41] LABS: BACTERIA,URINE 4+ /HPF (Neg); HYALINE CASTS 0-3 /LPF (NEGATIVE)
[2018-11-10 18:58] LABS: ANISOCYTOSIS 2+; HYPOCHROMASIA 1+; MICROCYTOSIS 1+; PLATELET ESTIMATE INCREASED
--- NOTE | 2018-11-13 16:09 | NUR ---
PT CALLED REGARDING LAB WORK: URINE POSITIVE FOR MRSA,STAPH AUREUS AND CITROBACTER. PT STATES HE IS CURRENTLY ADMITTED TO THE FLOOR. PT's FOUNDRY ENGINEER CALLED AND NOTIFIED OF PT'S LAB RESULTS Addendum: 11/13/18 at 1620 by BAILEY LAB RESULTS FAXED TO SURGICAL FLOOR, PT'S RN TO RECEIVE
== END 2018-11-10 18:40 | disposition left against medical advice (07) ==
LOC: ER 17:06
DX: A41.9 Sepsis, unspecified organism (principal); N39.0 Urinary tract infection, site not specified; G82.50 Quadriplegia, unspecified; R06.02 Shortness of breath; R05 Cough; G89.29 Other chronic pain; G47.30 Sleep apnea, unspecified; Z88.6 Allergy status to analgesic agent; Z91.013 Allergy to seafood; F10.99 Alcohol use, unspecified with unspecified alcohol-induced disorder; Y90.9 Presence of alcohol in blood, level not specified
CPT/HCPCS: 36415; 71045; 80053; 81001; 83605; 84145; 85025; 87040; 87077; 87088; 87186; 93005; 94640; 94760; 99291

== ENCOUNTER 2018-11-12 12:55 | Inpatient (IN) | payer MEDICAID ==
[~2018-11-12] VITALS: Ht 180.3 cm; Wt 59.1 kg
[2018-11-12] MEDS ORDERED: piperacillin/tazo 3.375gm/50ml 50 ML IV ONE (13:35)
[2018-11-12] MEDS ORDERED: normal saline 1000ML IV soln IV ONE (13:35)
[2018-11-12 14:31] LABS: BASOPHILS # (AUTO) 0.1 X10'3 (0-0.2); EOSINOPHILS # (AUTO) 0.3 X10'3 (0-0.9); EOSINOPHILS % (AUTO) 1.8 % (0-6); HEMOGLOBIN 9.4 g/dl (14.0-17.9); MONOCYTES # (AUTO) 1.1 X10'3 (0-0.9); RED CELL DISTRIBUTION WIDTH 19.4 % (11.5-14.5); WHITE BLOOD COUNT 16.2 X10'3 (4.5-11.0)
[2018-11-12 14:33] LABS: BASOPHILS % (AUTO) 0.5 % (0-1); HEMATOCRIT 29.7 % (42.0-52.0); LYMPHOCYTES # (AUTO) 3.8 X10'3 (1.1-4.8); LYMPHOCYTES % (AUTO) 23.4 % (21-51); MEAN CORPUSCULAR HEMOGLOBIN 22.5 PG (27.0-31.0); MEAN CORPUSCULAR HGB CONC 31.7 g/dL (33.0-36.5); MEAN CORPUSCULAR VOLUME 71.1 FL (78-98); MEAN PLATELET VOLUME 6.8 FL (7.4-10.4); NEUTROPHILS # (AUTO) 10.9 X10'3 (1.8-7.7); NEUTROPHILS % (AUTO) 67.3 % (42-75); PLATELET COUNT 654 X10'3 (140-440); RED BLOOD COUNT 4.18 X10'6 (4.70-6.10)
[2018-11-12 14:42] LABS: PARTIAL THROMBOPLASTIN TIME 33 SECONDS (22-32)
[2018-11-12 14:46] LABS: ALANINE AMINOTRANSFERASE 14 U/L (12-78); ALBUMIN 1.7 G/DL (3.4-5.0); ALBUMIN/GLOBULIN RATIO 0.3 (1.1-1.5); ALKALINE PHOSPHATASE 103 IU/L (46-116); ANION GAP 11 (8-16); ASPARTATE AMINO TRANSFERASE 16 U/L (10-37); BILIRUBIN,TOTAL 0.2 MG/DL (0.1-1.0); BLOOD UREA NITROGEN 9 MG/DL (7-18); CALCIUM 7.9 MG/DL (8.5-10.1); CHLORIDE 98 MMOL/L (99-107); CREATININE 0.41 MG/DL (0.60-1.10); GLUCOSE 109 MG/DL (70-104); MAGNESIUM 1.7 MG/DL (1.5-2.4); SODIUM 133 MMOL/L (135-145); TOTAL CARBON DIOXIDE 24.3 MMOL/L (24-32); TOTAL PROTEIN 8.4 G/DL (6.4-8.2); eGFR > 90 ML/MIN
[2018-11-12 14:48] LABS: POTASSIUM 2.9 MMOL/L (3.5-5.1)
[2018-11-12] MEDS ORDERED: LIDOcaine 1% w/epiNEPHrine 1:200,000 30ml vial IM ONE (15:05)
[2018-11-12] MEDS ORDERED: vancomycin/NS 1 GM ADD-VANTAGE 250 ML IV ONE (15:10)
[2018-11-12] MEDS ORDERED: potassium Cl 20 mEq SR tablet PO PRN (15:20)
[2018-11-12] MEDS ORDERED: diphenhydrAMINE 25mg capsule PO PRN (15:20)
[2018-11-12] MEDS ORDERED: ondansetron/PF 4mg/2ml inj IV PRN (15:20)
[2018-11-12] MEDS ORDERED: morphine 2 MG/ML inj. syringe IV PRN (15:20)
[2018-11-12] MEDS ORDERED: HYDROcodone/acetaminophen 5mg/325mg tablet PO PRN (15:20)
[2018-11-12] MEDS ORDERED: magnesium Cl slow-release 64mg tablet PO PRN (15:20)
[2018-11-12] MEDS ORDERED: bisacodyl 10mg suppository rectal RC PRN (15:20)
[2018-11-12] MEDS ORDERED: magnesium 2GM in 50ml NS 50 ML IV PRN (15:20)
[2018-11-12] MEDS ORDERED: magnesium 4gm in 100ml NS 100 ML IV PRN (15:20)
[2018-11-12] MEDS ORDERED: potassium CL 10mEq/100ml bag 100 ML IV PRN ×2 (15:20)
[2018-11-12] MEDS ORDERED: mag hydrox/Alum hydrox/simeth 30ml oral suspension PO PRN (15:20)
[2018-11-12] MEDS ORDERED: acetaminophen 325mg tablet PO PRN ×2 (15:20)
[2018-11-12] MEDS ORDERED: magnesium hydroxide 30ml (MOM) UD suspension PO PRN (15:20)
[2018-11-12 15:37] LABS: C-REACTIVE PROTEIN 10.82 MG/DL (0.0-0.5)
[2018-11-12] MEDS: piperacillin/tazo 3.375gm/50ml 50 ML IV SCH ×2 (15:39→16:00)
[2018-11-12] MEDS: morphine 2 MG/ML inj. syringe IV PRN ×2 (16:19→23:49)
[2018-11-12] MEDS ORDERED: iohexol 300mg/ml 100ml inj. ONE (16:48)
--- NOTE | 2018-11-12 17:26 | NUR ---
REFUSED TO HAVE PHOTOS OF HIS COCCYX WOUND.
[2018-11-12] MEDS: potassium Cl 20 mEq SR tablet PO PRN (17:43)
--- NOTE | 2018-11-12 17:47 | NUR ---
Received report from RD Gutierrez in ED. Patient not arrived to surgical unit yet, awaiting patient arrival to room 347B.
[2018-11-12 17:49] LABS: CLARITY,URINE CLOUDY (Clear); COLOR,URINE YELLOW (Yellow); GLUCOSE, URINE NEGATIVE (Neg); KETONES,URINE NEGATIVE (Neg); LEUKOCYTE ESTERASE ,URINE MODERATE (Neg); OCCULT BLOOD,URINE LARGE (Neg); PH,URINE 6.5 (4.8-8.0); PROTEIN,URINE 100 mg/dl (Neg)
[2018-11-12 17:52] LABS: UA COLLECTION TYPE FOLEY CATH
[2018-11-12 17:55] LABS: NITRITES, URINE POSITIVE (Neg)
[2018-11-12 18:00] VITALS: BP 142/86
[2018-11-12 18:02] LABS: MUCUS STRANDS FEW /LPF (Neg); SQUAMOUS EPITHELIAL CELL,UR FEW /LPF (FEW); WBC,URINE TNTC /HPF (0-4)
[2018-11-12 18:03] LABS: BACTERIA,URINE 3+ /HPF (Neg)
[2018-11-12 18:05] LABS: CAL OXALATE CRYSTALS 1+ /HPF (NEGATIVE)
--- NOTE | 2018-11-12 18:52 | NUR ---
Patient in room WHIT 347. I have received report from RD Anderson and had the opportunity to ask questions and assume patient care. Addendum: 11/12/18 at 1852 by Cris Clements RN Amended: Links added.
[2018-11-12] MEDS: HYDROcodone/acetaminophen 10/325mg tab PO PRN (19:06)
--- NOTE | 2018-11-12 19:07 | NUR ---
Problems reprioritized. Patient report given, questions answered & plan of care reviewed with Jayda Aguero RN.
[2018-11-12] MEDS: normal saline 1000ml 1,000 ML IV SCH (19:22)
[2018-11-12] MEDS ORDERED: ESOMEPRAZOLE 40 MG VIAL IV ONE (19:30)
[2018-11-12] MEDS: heparin, porcine 5000 units/ml vial SQ SCH (19:34)
[2018-11-12] MEDS ORDERED: NO HOME MEDS (20:19)
[2018-11-12] MEDS: K and/or MAG REPLACEMENT MC SCH (21:17)
[2018-11-13] VITALS: BP 105/63
[2018-11-13] MEDS: VANCOMYCIN 750MG IV in NS 250 ML IV SCH ×3 (01:01→16:36)
[2018-11-13] MEDS: piperacillin/tazo 3.375gm/50ml 50 ML IV SCH (03:05)
[2018-11-13] MEDS: normal saline 1000ml 1,000 ML IV SCH ×4 (04:16→19:51)
[2018-11-13] MEDS: potassium Cl 20 mEq SR tablet PO PRN ×2 (04:44→08:54)
--- NOTE | 2018-11-13 06:12 | NUR ---
Problems reprioritized. Patient report given, questions answered & plan of care reviewed with RD Flowers. Addendum: 11/13/18 at 0612 by Cris Clements RN Amended: Links added.
[2018-11-13 06:57] VITALS: BP 138/82
[2018-11-13] MEDS: K and/or MAG REPLACEMENT MC SCH (08:00)
[2018-11-13] MEDS: ESOMEPRAZOLE 40 MG VIAL IV SCH (08:51)
[2018-11-13] MEDS: heparin, porcine 5000 units/ml vial SQ SCH ×2 (08:53→20:00)
[2018-11-13] MEDS: HYDROcodone/acetaminophen 10/325mg tab PO PRN ×2 (08:56→15:43)
[2018-11-13 09:48] LABS: BASOPHILS # (AUTO) 0.1 X10'3 (0-0.2); BASOPHILS % (AUTO) 0.8 % (0-1); EOSINOPHILS # (AUTO) 0.3 X10'3 (0-0.9); EOSINOPHILS % (AUTO) 3.6 % (0-6); HEMATOCRIT 25.3 % (42.0-52.0); LYMPHOCYTES # (AUTO) 2.2 X10'3 (1.1-4.8); LYMPHOCYTES % (AUTO) 23.9 % (21-51); MEAN CORPUSCULAR HEMOGLOBIN 22.8 PG (27.0-31.0); MEAN CORPUSCULAR HGB CONC 31.8 g/dL (33.0-36.5); MEAN CORPUSCULAR VOLUME 71.6 FL (78-98); MEAN PLATELET VOLUME 6.8 FL (7.4-10.4); MONOCYTES # (AUTO) 0.7 X10'3 (0-0.9); MONOCYTES % (AUTO) 7.5 % (2-12); NEUTROPHILS % (AUTO) 64.2 % (42-75); PLATELET COUNT 570 X10'3 (140-440); RED BLOOD COUNT 3.53 X10'6 (4.70-6.10); RED CELL DISTRIBUTION WIDTH 19.1 % (11.5-14.5); WHITE BLOOD COUNT 9.4 X10'3 (4.5-11.0)
--- NOTE | 2018-11-13 10:00 | NUR ---
UNABLE TO FOLLOW ALL ASPIRATION PRECAUTIONS PT. REFUSES TO SIT AT 90 DEGREE ANGLE WHILE EATING R/T WOUNDS ON SACRUM AND BUTTOCKS AND HIP CONTRACTURE/PAIN.
[2018-11-13 10:03] LABS: % IRON SATURATION 9 % (11-46); IRON 14 UG/DL (53-167); TOTAL IRON BINDING CAPACITY 156 UG/DL (259-388)
[2018-11-13] MEDS: morphine 2 MG/ML inj. syringe IV PRN (10:14)
[2018-11-13 10:17] LABS: ALANINE AMINOTRANSFERASE 13 U/L (12-78); ALBUMIN 1.4 G/DL (3.4-5.0); ALBUMIN/GLOBULIN RATIO 0.2 (1.1-1.5); ALKALINE PHOSPHATASE 93 IU/L (46-116); ANION GAP 6 (8-16); ASPARTATE AMINO TRANSFERASE 11 U/L (10-37); BILIRUBIN,TOTAL 0.2 MG/DL (0.1-1.0); BLOOD UREA NITROGEN 6 MG/DL (7-18); BUN/CREATININE RATIO 12.8 (5.4-32.0); CALCIUM 7.7 MG/DL (8.5-10.1); CHLORIDE 106 MMOL/L (99-107); CREATININE 0.47 MG/DL (0.60-1.10); FERRITIN 244 NG/ML (26-388); GLUCOSE 130 MG/DL (70-104); MAGNESIUM 1.7 MG/DL (1.5-2.4); PHOSPHORUS 2.8 MG/DL (2.3-4.5); POTASSIUM 3.7 MMOL/L (3.5-5.1); SODIUM 137 MMOL/L (135-145); TOTAL CARBON DIOXIDE 24.9 MMOL/L (24-32); TOTAL PROTEIN 7.4 G/DL (6.4-8.2); eGFR > 90 ML/MIN
[2018-11-13 10:33] LABS: HYPOCHROMASIA 2+; PLATELET ESTIMATE INCREASED; POLYCHROMASIA 1+
[2018-11-13 10:34] LABS: ANISOCYTOSIS 2+; MICROCYTOSIS 2+; ROULEAUX 1+
[2018-11-13 12:00] VITALS: BP 96/56
[2018-11-13] MEDS: HYDROmorphone 1 mg/ml syringe IV PRN ×2 (12:23→16:36)
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
[2018-11-13] MEDS: tizanidine 4mg tablet PO PRN (14:04)
--- NOTE | 2018-11-13 14:14 | NUR ---
Pt HR in 120s 130 for one hour. made aware. See new orders.
[2018-11-13] MEDS ORDERED: VANCOMYCIN LEVEL IV ONE (15:30)
[2018-11-13] MEDS: cefepime 1GM/NS ADD-VANTAGE 100 ML IV SCH ×2 (15:42→23:27)
--- NOTE | 2018-11-13 16:00 | NUR ---
SPOKE TO DAYSI IN CM. TALKED ABOUT HOSPITAL BED, HOME PT FOR CONTRACTIONS, AND IHSS. SHE STATES SHE IS LOOKING FOR REHAB CARE FOR WOUND CARE.
--- NOTE | 2018-11-13 16:08 | NUR ---
DRUM SPRAYER CALLED REQUESTING MULTIVITAMIN AN IRON SUPPLEMENTS. PAGED.
--- NOTE | 2018-11-13 16:21 | NUR ---
PAGER ID: [phone] MESSAGE: [id number] ULISES GONZALES PT. URINE CULTURE FROM ER CAMEUP POSITIVE FOR MRSA, S. AREUS. OSCAR SULTANA [id number]
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
[2018-11-13] MEDS ORDERED: lactose-reduced food (Ensure Enlive) - 237ml bottle PO SCH (18:00)
--- NOTE | 2018-11-13 18:30 | NUR ---
Patient in room WHIT 347. I have received report from OSCAR and had the opportunity to ask questions and assume patient care.
--- NOTE | 2018-11-13 18:42 | NUR ---
Pt. in room with family members, no needs at this time, gave report to Keerthi SULTANA.
[2018-11-13 19:20] VITALS: BP 128/69
[2018-11-13] MEDS ORDERED: LORazepam 2 mg/ml vial IV PRN (19:25)
--- NOTE | 2018-11-13 19:25 | NUR ---
PT IN BED CRYING, DAUGHTER AT THE BEDSIDE. PT STATES, "I AM HAVING A PANIC ATTACK." DR BADILLO NOTIFIED, PO ATIVAN ORDERS RECEIVED. 1939: UPON ATTEMPTING TO GIVE PT PO ATIVAN, PT STATES THAT PO DOESN'T WORK FOR HIM AND HE CAN ONLY TAKE IV. PT INFORMED THAT DR BADILLO ONLY ORDERED PO ATIVAN. PT REQUESTING AMA PAPERWORK. STATES THAT HE "CAN'T STAY HERE AND PANIC ALL NIGHT LONG." DR BADILLO NOTIFIED AGAIN OF ABOVE INFORMATION, AGREED TO GIVE THE PT ONE TIME DOSE OF IV ATIVAN IF PT WILL REMAIN IN THE HOSPITAL. PT AGREES TO PLAN.
[2018-11-13] MEDS ORDERED: LORazepam 1 MG tablet PO PRN (19:30)
[2018-11-13] MEDS ORDERED: LORazepam 2 mg/ml vial IV ONE (19:40)
[2018-11-13] MEDS: lactobacillus rhamnosus 10,000 MMU CELLS/CAPSULE PO SCH (20:00)
--- NOTE | 2018-11-13 20:30 | NUR ---
PT CALLING OUT. PT HAD FORMED BM. PT FOUND BANGING HIS HEAD ON THE BED RAIL. STATES THAT HE DOESN'T WANT TO BE IN THE HOSPITAL AND IS REQUESTING AMA PAPERS AGAIN. EXPLAINED TO PT THAT HE HAS SEPSIS AND NEEDS ANTIBIOTICS. PT IS AWARE OF HEALTH ISSUES. PT'S DAUGHTER TO CALL THE PT'S SPOUSE TO COME IN TO TAKE PT HOME.
--- NOTE | 2018-11-13 21:30 | NUR ---
PT'S SPOUSE FLAQUITO AT THE BEDSIDE. PT ASLEEP IN THE BED WITH HOME CPAP IN PLACE. PER SPOUSE, PT AGREES TO REMAIN IN THE HOSPITAL.
[2018-11-13] MEDS: HYDROmorphone inj. 0.5 MG/0.5 ML DISP.SYRIN IV PRN (21:40)
[2018-11-13 23:00] VITALS: BP 127/76
[2018-11-14] MEDS: vancomycin/NS 1 GM ADD-VANTAGE 250 ML IV SCH ×2 (00:22→09:30)
[2018-11-14] MEDS: normal saline 1000ml 1,000 ML IV SCH ×2 (00:26→08:36)
[2018-11-14] MEDS: HYDROmorphone inj. 0.5 MG/0.5 ML DISP.SYRIN IV PRN ×2 (02:00→10:10)
--- NOTE | 2018-11-14 02:00 | NUR ---
OUTER DRESSING TO BILATERAL BUTTOCK WOUNDS CHANGED. DRESSINGS SATURATED WITH FOUL SMELLING PURULENT DRAINAGE. SUE CARE PROVIDED AT THIS TIME AND PT REPOSITIONED TO COMFORT WELL. FAMILY AT THE BEDSIDE.
[2018-11-14] MEDS: tizanidine 4mg tablet PO PRN (02:01)
[2018-11-14] MEDS: HYDROcodone/acetaminophen 10/325mg tab PO PRN (04:21)
--- NOTE | 2018-11-14 06:44 | NUR ---
Problems reprioritized. Patient report given, questions answered & plan of care reviewed with Addendum: 11/14/18 at 0645 by Zainab Randolph RN report given to lui
[2018-11-14] MEDS: K and/or MAG REPLACEMENT MC SCH (08:00)
[2018-11-14] MEDS: lactobacillus rhamnosus 10,000 MMU CELLS/CAPSULE PO SCH (08:00)
[2018-11-14 08:28] VITALS: BP 134/81
[2018-11-14] MEDS: ESOMEPRAZOLE 40 MG VIAL IV SCH (08:50)
[2018-11-14] MEDS: heparin, porcine 5000 units/ml vial SQ SCH (08:50)
[2018-11-14] MEDS: cefepime 1GM/NS ADD-VANTAGE 100 ML IV SCH (09:00)
[2018-11-14] MEDS ORDERED: ciprofloxacin 250mg tablet PO SCH (11:12)
[2018-11-14] MEDS ORDERED: CIPR250T4 PO (12:51)
--- NOTE | 2018-11-14 14:21 | NUR ---
PRESSURE ULCER EDUCATION: DEFINITION: A pressure ulcer is an area of skin that breaks down when you stay in one position too long. The constant pressure against the skin reduces the blood flow to that area and the affected tissue dies. CAUSES: "Being bedridden or in a wheelchair "Fragile skin "Having a chronic condition, such as diabetes or vascular disease "Inability to move certain parts of your body without assistance "Older age "Incontinence of urine or stool SYMPTOMS: "A reddened area that DOES NOT turn white when pressed on - this can be the beginning of a pressure ulcer "A blister, deep sore or a crater - these can be advanced pressure ulcers FIRST AID: "Relieve the pressure on this area "Keep the area clean and dry "Call your primary doctor if you see any of the above symptoms "DO NOT massage the area "DO NOT use a donut shaped or ring shaped pillow- these actually interfere with the blood flow and cause complications PREVENTION: "Check for pressure ulcers everyday "Change position at least every two hours to relieve pressure "Use items that help relieve pressure- pillows, sheepskin, foam padding, and powders. "Keep skin clean and dry "Eat healthy well balanced meals "Exercise daily IF YOU SEE ANY OF THESE SYMPTOMS WHILE IN THE HOSPITAL - TELL YOUR NURSE IMMEDIATELY. IF YOU SEE ANY OF THESE SYMPTOMS WHILE AT HOME OR HAVE ANY QUESTIONS OR CONCERNS ABOUT PRESSURE ULCERS - CALL YOUR PRIMARY DOCTOR IMMEDIATELY. Addendum: 11/14/18 at 1428 by Patrice Moser RN Amended: Links added.
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
[2018-11-14] MEDS ORDERED: VANCOMYCIN LEVEL IV ONE (23:30)
== END 2018-11-14 14:00 | disposition home health service (06) | DRG 720 ==
LOC: ER 12:55 → SUR 3N 16:04 → EDBEDREQ 17:22
PROVIDERS: ADMIT Family Medicine; ATTEND Family Medicine
PROC: BW211ZZ Computerized Tomography (CT Scan) of Abdomen and Pelvis using Low Osmolar Contrast (ICD-10-PCS; principal; 2018-11-12)
PROC: 5A09357 Assistance with Respiratory Ventilation, Less than 24 Consecutive Hours, Continuous Positive Airway Pressure (ICD-10-PCS; 2018-11-13)
DX: A41.9 Sepsis, unspecified organism (principal); G82.54 Quadriplegia, C5-C7 incomplete; L89.154 Pressure ulcer of sacral region, stage 4; R64 Cachexia; I95.9 Hypotension, unspecified; E87.1 Hypo-osmolality and hyponatremia; N31.9 Neuromuscular dysfunction of bladder, unspecified; D50.9 Iron deficiency anemia, unspecified; E87.6 Hypokalemia; F15.10 Other stimulant abuse, uncomplicated; F17.200 Nicotine dependence, unspecified, uncomplicated; I12.9 Hypertensive chronic kidney disease with stage 1 through stage 4 chronic kidney disease, or unspecified chronic kidney disease; R65.20 Severe sepsis without septic shock; N39.0 Urinary tract infection, site not specified; F41.9 Anxiety disorder, unspecified; G47.33 Obstructive sleep apnea (adult) (pediatric); B95.62 Methicillin resistant Staphylococcus aureus infection as the cause of diseases classified elsewhere; M54.9 Dorsalgia, unspecified; L08.9 Local infection of the skin and subcutaneous tissue, unspecified; G89.4 Chronic pain syndrome; N21.0 Calculus in bladder; Z87.440 Personal history of urinary (tract) infections; Z87.442 Personal history of urinary calculi; Z88.8 Allergy status to other drugs, medicaments and biological substances; Z71.6 Tobacco abuse counseling; Z99.3 Dependence on wheelchair; Z74.01 Bed confinement status; Z68.1 Body mass index [BMI] 19.9 or less, adult
CPT/HCPCS: 36415; 71045; 72193; 80053; 80202; 81001; 82728; 83036; 83540; 83550; 83605; 83735; 84100; 84145; 85025; 85610; 85651; 85730; 86140; 87040; 87070; 87075; 87076; 87077; 87081; 87088; 87185; 87186; 93005; 97110; 97161; 99285; G0378; J0692; J1170; J1644; J2060; J2270; J2543; J3370; J7030; J7050; Q0163; Q9967

== ENCOUNTER 2025-01-14 01:00 | Inpatient (IN) | payer MEDICAID ==
[~2025-01-14] VITALS: Ht 180.3 cm; Wt 100.0 kg
[~2025-01-14 01:00] MED LIST changes: -CEPH500C5 PO; +CIPR250T4 PO; -HYDR-3965 PO; -LEVO500T2 PO
[2025-01-14] MEDS: normal saline 1000ML IV soln IVB ONE (01:45)
[2025-01-14] MEDS: LidoCAINE 2% Topical Jelly 11mL syringe (UROJET) TOP ONE (01:45)
--- NOTE | 2025-01-14 01:51 | Physician Documentation ---
History of Present Illness General Chief Complaint: Flank Pain Stated Complaint: FLANK PAIN Time Seen by MD: 01:13 Primary Medical Doctor: JEF Mode of Arrival: EMS History of Present Illness Initial Comments This is a 49-year-old gentleman with a known history of quadriplegia, history of methamphetamine abuse, history of frequent UTIs, indwelling Marques catheter, presents for evaluation of bilateral flank pain for a week, obstructive catheter four days ago, the worker has a removed the catheter, he continues to urinate, but complains of worsening flank pain. Subjective fever and chills. No par ticular palliating or aggravating factors. Similar to prior UTIs. Did not attempt to treat it. Appy denies any chest pain or difficulty breathing. Continues to smoke and use methamphetamines. 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 Physical Exam Physical Exam Vital Signs: Temperature: 98.0, Heart Rate: 114, Respiratory Rate: 18, BP: 157/118, Pulse Oximetry: 99, Weight: 100.000 Oxygen Flow Rate: 0 Physical Exam GENERAL: Awake, alert, oriented, GCS 15, no apparent distress, non-toxic appearing, answers questions, follows commands appropriately. Examined in bed 7. Immediately upon arrival. HEENT: Atraumatic, normocephalic, pupils equal, extraocular muscles intact, sclerae anicteric, mucus membranes moist, oropharynx is clear, no stridor. NECK: supple, full active range of motion, trachea midline, no thyromegaly, no lymphadenopathy, no JVD. CARDIOVASCULAR: Tachycardic and regular rate/rhythm, no murmurs/gallops/rubs, Pulses are 2+ in all extremities and symmetric. Capillary refill less than 2 seconds. PULMONARY: Nonlabored, good air movement ,no respiratory distress, speaking in f ull sentences, clear to auscultation bilaterally, no wheezing, no ronchi, no rales, no accessory muscle use. GASTROINTESTINAL: Soft, non-tender, non-distended, normal active bowel sounds, no organomegaly, no pulsatile masses, no CVA tenderness. NEUROLOGIC: Lucid with normal mental status. Normal facial symmetry. Chronic contracture bilateral upper and lower extremities, no new focal deficits. MUSCULOSKELETAL: There is full range of motion of all extremities. There is no joint pain or joint swelling or joint erythema. There is no muscle pain or tenderness or swelling. EXTREMITIES: warm, well-perfused, no cyanosis, no clubbing, no edema, no acute deformities. Skin: warm, dry, no rashes or lesions, no jaundice, no petechiae orpurpura. No ecchymosis. PSYCHIATRIC: Normal affect, normal insight, normal concentration. Focused exam: [] Progress Results/Orders Results/Orders Orders - JAMI CRUZ DO Lipase (01/14/25 01:45) C-Reactive Protein (01/14/25 01:45) Culture Blood (01/14/25 01:45) PBNP (01/14/25 01:45) MG (01/14/25 01:45) Monitor (01/14/25 01:45) Saline Lock (01/14/25 01:45) Ct Abdomen Pelvis (01/14/25 01:45) CMP (01/14/25 01:45) * (A) Marques- Protocol * Q12H@07,19 (01/14/25 01:45) Ethanol (01/14/25 01:45) Cult Urine + [address] (01/14/25 02:53) Completed Orders - JAMI CRUZ DO Electrocardiogram (01/14/25 01:45) Cbc/Diff (01/14/25 01:45) ESR (01/14/25 01:45) Piperacillin/Tazo 4.5gm/100ml (Zosyn 4.5 (01/14/25 01:45) Normal Saline 1000ml (0.9% Sodium Chlori (01/14/25 01:45) Hs Troponin I W Calculations (01/14/25 01:45) Lacticsepsis (01/14/25 01:45) Lidocaine 2% Jelly 11ml Syr (Glydo-Lidoc (01/14/25 01:45) Drug Screen, Urine (01/14/25 01:45) Ua W/Microscopic, Cult If Ind (01/14/25 02:22) Medications Received in ER Medications (Trade) Dose Ordered Sig/Tony Route PRN Reason Start Time Stop Time Status Last Admin Dose Admin (0.9% sodium chloride (NS) 1000ml IV soln) 1,000 ml ONCE ONCE IVB 01/14/25 01:45 01/14/25 01:49 DC 01/14/25 01:45 1,000 ML Vital Signs 01/14/25 01/14/25 01:05 03:28 Temp 98.0 98.0 Pulse 114 100 Resp 18 18 B/P (MAP) 157/118 123/80 (94) Pulse Ox 99 97 O2 Flow Rate 0 0 Laboratory Tests Test 01/14/25 02:22 01/14/25 02:42 Urine Specimen Description Non-specified Urine Color Yellow Urine Clarity Cloudy Urine pH 8.0 Urine Specific Phelps 1.015 Urine Protein 100 H Urine Glucose (UA) Negative Urine Ketones Negative Urine Occult Blood Large H Urine Nitrite Negative Urine Bilirubin Negative Urine Urobilinogen 2.0 H Urine Leukocyte Esterase Large H Urine RBC Tntc Urine WBC Tntc H Urine Squamous Epithelial Cells None seen Urine Triple Phosphate Crystals 1+ Urine Bacteria 4+ Urine Culture Indicated Indicated Volume Urine Centrifuged 10 ml Urine Comment Urine Opiates Screen Negative Urine Methadone Screen Negative Urine Fentanyl Screen Negative Urine Barbiturates Screen Negative Urine Phencyclidine Screen Negative Urine Amphetamines Screen Positive Urine Benzodiazepines Screen Negative Urine Cocaine Screen Negative Urine Cannabinoids Screen Negative Drug Screen Comment White Blood Count 15.3 H Red Blood Count 5.92 Hemoglobin 16.4 Hematocrit 49.8 Mean Corpuscular Volume 84.1 Mean Corpuscular Hemoglobin 27.8 Mean Corpuscular Hemoglobin Concent 33.0 Red Cell Distribution Width 16.0 H Platelet Count 305 Mean Platelet Volume 7.8 Neutrophils (%) (Auto) 74.6 Lymphocytes (%) (Auto) 16.0 L Monocytes (%) (Auto) 6.5 Eosinophils (%) (Auto) 2.3 Basophils (%) (Auto) 0.6 Neutrophils # (Auto) 11.4 H Lymphocytes # (Auto) 2.4 Monocytes # (Auto) 1.0 H Eosinophils # (Auto) 0.4 Basophils # (Auto) 0.1 CBC Comment Erythrocyte Sedimentation Rate 13 Sodium Level 140 Chloride Level 106 Carbon Dioxide Level 23.2 L Anion Gap 11 Blood Urea Nitrogen 18 Creatinine 0.64 Estimated GFR/1.73 m2 > 90 BUN/Creatinine Ratio 28.1 H Glucose Level 101 Lactic Acid Level 1.5 Calcium Level 8.8 Total Bilirubin 0.4 Alanine Aminotransferase (ALT/SGPT) 16 Alkaline Phosphatase 105 Troponin I High Sensitivity 16 Total Protein 8.2 Albumin 3.1 L Globulin 5.1 H Albumin/Globulin Ratio 0.6 L Chemistry Comments Medical Decision Making Findings Facility Status: ED Holds, RME process The plan was discussed with the patient, who demonstrates clear understanding of the plan and is in agreement with the plan unless otherwise noted in the chart. All questions have been answered, all concerns were addressed unless otherwise documented. I was available throughout their ED stay for frequent reassessment and questions. Differential Diagnoses (considered and possible or likely): [UTI, pyelitis, pyelonephritis, kidney stones, infected kidney stones, less likely emphysematous pyelonephritis, sepsis, less likely acute intra-abdominal process requiring surgical intervention.] ??Differential Diagnoses (considered and unlikely, not requiring evaluation currently): [See above] MDM Data Please see HPI for the following: Independent Historians and external Records Review. Historian: [Patient] Independent Historians: ?[EMS, record review] Medication Management: [Reviewed medication list] Social History and determinants: [Reviewed] Please see the body of the note for the following: Any independent interpretations of ECG, imaging studies. All vitals signs/haemodynamics, ordered tests were independently reviewed and interpreted by myself. Nursing triage complaint and vitals reviewed, additional nursing notes were reviewed as available and I agree unless otherwise noted or documented in contradiction in the chart Vital Signs: Independently reviewed Labs: Independently interpreted Imaging: Independently interpreted Old Medical Records: Independently reviewed, see HPI for relevant summary and information Pulse Oximetry: [95%] interpreted as [normal on room air] by me [Leak Gang Supervisor: Tachycardic Rate, Regular rhythm, no ectopy, sinus tachycardia. reviewed and interpreted by me] Additionally notably showing: [Hemodynamics reviewed. The patient is tachycardic, improved with fluids. Not hypotensive. Not febrile. Laboratory studies showed leukocytosis of 15.3, normal hemoglobin, normal platelets. ESR is normal. Chemistry shows significant dehydration. Transaminitis and alcoholic pattern. CRP is mildly elevated. Troponin is negative. Lactic acid is normal. Toxicology, as expected, positive for methamphetamines. Ethanol was negative. UA is fulminant positive for UTI. CT of the abdomen and pelvis was ordered, pending at the time of admission.] Tests considered but not ordered include: [Echocardiogram to evaluate his congestive heart failure can be done on an inpatient basis, if necessary,] Social Determinants of Health Impact: Patient was evaluated in [facility] [place] to healthcare due to below par ratio of patient to medical providers. [] Comorbid Conditions Impacting Present Evaluation and Care/Treatment: [Quadriplegia, frequent UTIs] Management Discussions with other Healthcare Providers: [Hospitalist regarding admission] Treatment and Disposition Medication Management (Given or considered): [Fluid bolus, antibiotics]. See EMR for details Consideration for Hospitalization/Escalation/Deescalation of Care: Admission for observation has been considered, [however the patient is able to tolerate p.o., their symptoms are controlled, they are able to rely on oral medications, and their chief complaint/diagnosis can be managed on outpatient basis.] ?ED Course:?[Patient does not required 30 cc/kilos fluid given history of me thamphetamine use, methamphetamine induced cardiomyopathy, and the fact that this is not severe sepsis septic shock. Patient will require admission to Internal Medicine service for further evaluation and management of their disease process. The case was discussed with [resident] of the admitting service and they were made aware of all the patient's active issues, including the above-mentioned history, physical exam findings, and the diagnostic results, as well as our concerns and suspicions, as well as any possible incidental findings and pending test. They agreed with the admission plan to their service, and agreed to assume responsibility for the patient's ongoing care and management at that point in time. Patient was admitted in [stable] condition. ] ?Shared decision making:?[] Code status:?FULL Please see the full Electronic Medical Record for full details of nursing docume ntation, medications list, other records of complete past medical history and conditions, vital signs, laboratory studies, and any radiologic study interpretations by radiologists. Portions of this note were completed using [employer] dictation software and as a result there may exist minor errors in spelling. I have reviewed elements of past family and social history and agree as included in note. Departure Disposition: 09 ADMITTED INPATIENT Impression: Primary Impression: Acute pyelonephritis Additional Impressions: Acute urinary tract infection Sepsis Referrals: NO PRIMARY CARE PROVIDER (PCP) Signature Scribe Signature: No scribe Attestation: Date: Jan 14, 2025 Time: 01:51 This note accurately reflects clinical decisions, work performed by myself, DO ANTHONY Case NICHOLAS M DO Jan 14, 2025 01:51
--- NOTE | 2025-01-14 01:54 | ELECTROCARDIOGRAPH REPORT ---
[facility] Test Date: 2025-01-14 Test Time: 01:50:45 Pat Name: ULISES GONZALES Department: [facility]-ER Patient ID: [id number] Room: Gender: M Office Support Associate: : 1975 Requested By: JAMI CRUZ Order Number: [id number] Reading MD: Measurements Intervals [place] Rate: 110 P: 68 TX: 148 QRS: -4 QRSD: 131 T: 17 QT: 357 QTc: 484 Interpretive Statements Sinus tachycardia Atrial premature complex Right bundle branch block ST elevation, consider lateral injury Please click the below link to view image of tracing.
[2025-01-14 02:43] LABS: LEUKOCYTE ESTERASE ,URINE LARGE (Neg); NITRITES, URINE NEGATIVE (Neg); OCCULT BLOOD,URINE LARGE (Neg)
[2025-01-14 02:51] LABS: UA COLLECTION TYPE NON-SPECIFIED; URINE AMPHETAMINE SCREEN POSITIVE (Neg); URINE BARBITUATE SCREEN NEGATIVE (Neg); URINE BENZODIAZEPINES SCREEN NEGATIVE (Neg); URINE CANNABINOID SCREEN NEGATIVE (Neg); URINE COCAINE SCREEN NEGATIVE (Neg); URINE METHADONE SCREEN NEGATIVE (Neg); URINE OPIATE SCREEN NEGATIVE (Neg); URINE PHENCYCLIDINE SCREEN NEGATIVE (Neg)
[2025-01-14 02:53] LABS: SQUAMOUS EPITHELIAL CELL,UR NONE SEEN /LPF (FEW); TRIPLE PHOSPHATE CRYST 1+ /HPF (NEGATIVE)
[2025-01-14 03:00] LABS: MEAN PLATELET VOLUME 7.8 FL (7.4-10.4); RED CELL DISTRIBUTION WIDTH 16.0 % (11.5-14.5)
[2025-01-14 03:38] LABS: CREATININE 0.64 MG/DL (0.60-1.10); TOTAL CARBON DIOXIDE 23.2 MMOL/L (24-32); eCRCL 145 ML/MIN; eGFR > 90 ML/MIN
[2025-01-14 03:45] LABS: PRO BRAIN NATRIURETIC PEPTIDE 114 PG/ML (0-125)
[2025-01-14 03:47] LABS: ETHANOL < 10 MG/DL (<10)
[2025-01-14] MEDS ORDERED: iohexol 300mg/ml 100ml inj. ONE (03:56)
[2025-01-14] MEDS: piperacillin/tazo 4.5gm/100ml 100 ML IV ONE ×2 (04:02)
[2025-01-14] MEDS ORDERED: LINE600T14 PO (04:31)
[2025-01-14] MEDS ORDERED: MIDO5TAB4 PO (04:31)
[2025-01-14] MEDS ORDERED: ondansetron/PF 4mg/2ml inj IV PRN (04:55)
[2025-01-14] MEDS ORDERED: potassium Cl 20 mEq SR tablet PO PRN ×2 (04:55)
[2025-01-14] MEDS ORDERED: HYDROcodone/acetaminophen 5mg/325mg tablet PO PRN (04:55)
[2025-01-14] MEDS ORDERED: magnesium hydroxide 30ml (MOM) UD suspension PO PRN (04:55)
[2025-01-14] MEDS ORDERED: magnesium sulf-water 4G/100mL 100 ML IV PRN (04:55)
[2025-01-14] MEDS ORDERED: magnesium Cl slow-release 64mg tablet PO PRN (04:55)
[2025-01-14] MEDS ORDERED: magnesium sulf-water 2g/50mL 50 ML IV PRN (04:55)
[2025-01-14] MEDS ORDERED: mag hydrox/Alum hydrox/simeth 30ml oral suspension PO PRN (04:55)
[2025-01-14] MEDS ORDERED: potassium Cl 40MEQ/1/2NS 520ml 520 ML IV PRN (04:55)
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
[2025-01-14] MEDS: normal saline 1000ml 1,000 ML IV SCH (06:44)
[2025-01-14] MEDS: HYDROcodone/acetaminophen 10/325mg tab PO PRN (06:44)
[2025-01-14] MEDS ORDERED: vancomycin/NS 1 GM ADD-VANTAGE 250 ML IV SCH (07:00)
--- NOTE | 2025-01-14 07:56 | RADIOLOGY REPORT ---
CLINICAL INFORMATION: 49 years old, Male; Bilateral flank pain. TECHNIQUE: Grayscale sonographic imaging of the kidneys and bladder was performed, assisted by color Doppler technique. COMPARISON: CT CT ABDOMEN PELVIS W/ IV CONTRAST on DOS: 01/14/25 FINDINGS: Very limited examination due to bowel gas. The right kidney measures 9.4 cm in length. No hydronephrosis. Right kidney is poorly evaluated and partially obscured. Cortical thickness appears grossly within normal limits. Cortical echogenicity is not well evaluated on this exam. The left kidney is not visualized, appears to be completely obscured. Bladder is collapsed around a Marques catheter and not able to be evaluated. IMPRESSION: 1. Very limited examination as described above. Left kidney is not visualized. 2. No hydronephrosis visualized in the right kidney.
[2025-01-14] MEDS ORDERED: piperacillin/tazo 4.5gm/100ml 100 ML IV SCH (08:00)
[2025-01-14] MEDS: K and/or MAG REPLACEMENT MC SCH (08:00)
[2025-01-14 09:00] VITALS: TEMP 98.2
[2025-01-14] MEDS: docusate sod 100mg capsule PO SCH (09:58)
[2025-01-14] MEDS: lactobacillus rhamnosus 10,000 MMU CELLS/CAPSULE PO SCH (09:59)
[2025-01-14] MEDS: heparin, porcine 5000 units/ml vial SQ SCH (10:00)
[2025-01-14] MEDS: MEROPENEM 1GM/NACL 50ML IVPB 50 ML IV SCH (11:26)
--- NOTE | 2025-01-14 11:34 | RADIOLOGY REPORT ---
CLINICAL INFORMATION: 49 years old, Male; Bilateral flank pain, PYELONEPHRITIS. TECHNIQUE: Axial CT images of the abdomen and pelvis were obtained after the uneventful administration of 100 mL Omnipaque 300 IV contrast. Coronal and sagittal reformatted images were obtained, reviewed, and stored. All CT scans at this medical facility are performed using dose modulation techniques as appropriate to a performed exam including the following: Automated exposure control was utilized; adjustment of the MA and/or KV according to patient size; and use of iterative reconstruction technique. CTDIvol = 31.46 mGy DLP = 1793.49 mGy-cm COMPARISON: US ULTRASOUND OF ABDOMEN on DOS: 01/14/25 FINDINGS: Lung bases: Trace right pleural effusion with overlying atelectasis. Dependent atelectasis in the left lung base. Partially visualized ground-glass opacity and consolidation in the lingula, may be infectious or inflammatory in nature. Liver: Unremarkable. No abnormal density or focal lesion. Biliary: No calcified gallstones or biliary ductal dilatation. Spleen: Unremarkable. Pancreas: Unremarkable. No inflammatory changes, ductal dilatation, or mass identified. Adrenal glands: Unremarkable. No mass. Kidneys: Moderate right hydronephrosis. No obstructing calculus visualized. There are small bilateral nonobstructing calculi in both kidneys, with the largest in the right kidney measuring up to 1 cm, although may be multiple small adjacent calculi. There is scarring in the left kidney. No left hydronephrosis or obstructing calculus. Aorta/Vascular: Moderate atherosclerotic calcification. No abdominal aortic aneurysm. Retroperitoneum: Small para-aortic and interaortocaval lymph nodes, most likely reactive lymph nodes. Slightly more prominent bilateral external iliac lymph nodes, with the largest measuring up to 2.0 x 1.0 cm on the left, may also be reactive. Bowel/mesentery: Nonspecific nondilated fluid-filled small bowel loops. No small bowel obstruction. Appendix is not visualized. Mild perirectal soft tissue stranding, possible proctitis in the appropriate clinical setting. Pelvic organs: There is a simmons catheter, with balloon inflated at the level of the prostatic urethra. Bladder: Mild circumferential thickening of the bladder wall. Bladder is not significantly distended. Abdominal wall: There is a device in the right lower ventral abdominal wall with no associated leads visualized. Bones: No evidence of acute fracture. Chronic appearing deformities in both hips, may be sequelae of osteonecrosis and/or inflammatory arthropathy. IMPRESSION: 1. The simmons catheter balloon is abnormally positioned with the balloon inflated at the level of the prostatic urethra. The Simmons catheter does not reach the bladder. Repositioning/ replacement recommended as clinically indicated. 2. Moderate right hydronephrosis with no obstructing calculus visualized. 3. Small bilateral renal calculi. No obstructing calculi. 4. Scarring of the left kidney. 5. Partially visualized ground-glass opacity and consolidation in the lingula, may be infectious or inflammatory in nature. 6. Circumferential thickening of the bladder wall. Correlate clinically to exclude cystitis. 7. Nonspecific nondilated fluid-filled small bowel loops. Findings may be seen with ileus or enteritis in the appropriate clinical setting. No small bowel obstruction. 8. Additional findings as described above.
[2025-01-14 12:20] VITALS: BP 96/51; PULSE 100; RESP 21; O2SAT 96
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
== END 2025-01-14 13:48 | disposition left against medical advice (07) | DRG 720 ==
LOC: ER 01:01 → ED HOLD 04:55
PROVIDERS: ADMIT Internal Medicine Critical Care Medicine; ATTEND Family Medicine
PROC: BW211ZZ Computerized Tomography (CT Scan) of Abdomen and Pelvis using Low Osmolar Contrast (ICD-10-PCS; principal; 2025-01-14)
DX: A41.9 Sepsis, unspecified organism (principal); G82.50 Quadriplegia, unspecified; L89.159 Pressure ulcer of sacral region, unspecified stage; G47.30 Sleep apnea, unspecified; G89.29 Other chronic pain; F17.210 Nicotine dependence, cigarettes, uncomplicated; N39.0 Urinary tract infection, site not specified; M54.9 Dorsalgia, unspecified; F15.90 Other stimulant use, unspecified, uncomplicated; Z87.440 Personal history of urinary (tract) infections; Z88.6 Allergy status to analgesic agent; Z74.01 Bed confinement status; Z71.6 Tobacco abuse counseling
CPT/HCPCS: 36415; 74176; 76770; 80053; 80305; 80320; 81001; 83605; 83690; 83735; 83880; 84132; 84145; 84484; 85025; 85651; 86140; 87040; 87088; 93005; 96361; 96365; 96375; 99285; A4314; A4340; A6223; G0378; J1644; J2185; J2543; J7030; Q9967